=== PATIENT | female | born 1935 | race African-American/Black ===

== ENCOUNTER → 2017-03-11 | Outpatient (CLI) | payer MEDICARE, OTHER ==
[2017-03-11 10:42] LABS: BASO # 0.1 x10^3/uL (0.0-0.2); BASO % 1 % (0-3); EOS # 0.1 x10^3/uL (0.0-0.7); EOS % 1 % (0-3); HEMATOCRIT 35.8 % (36.0-47.0); HEMOGLOBIN 11.6 g/dL (12.0-15.5); LYMPH # 1.3 x10^3/uL (1.0-4.8); LYMPH % 13 % (24-48); MEAN CORPUSCULAR HEMOGLOBIN 30 pg (25-35); MEAN CORPUSCULAR HGB CONC 32 g/dL (31-37); MEAN CORPUSCULAR VOLUME 92 fL (79-100); MONO # 0.6 x10^3/uL (0.0-1.1); MONO % 5 % (0-9); NEUT # 8.4 x10^3uL (1.8-7.7); NEUT % 81 % (31-73); PLATELET COUNT 236 x10^3/uL (140-400); RED BLOOD COUNT 3.88 x10^6/uL (3.50-5.40); RED CELL DISTRIBUTION WIDTH 15.5 % (11.5-14.5); WHITE BLOOD COUNT 10.3 x10^3/uL (4.0-11.0)
[2017-03-11 10:52] LABS: ALBUMIN 3.5 g/dL (3.4-5.0); CALCIUM 8.9 mg/dL (8.5-10.1); CREATININE 1.5 mg/dL (0.6-1.0); GFR 40.4; PHOSPHORUS 3.5 mg/dL (2.6-4.7); POTASSIUM 4.2 mmol/L (3.5-5.1)
[2017-03-12 13:12] LABS: CALCIUM PTH 9.1 mg/dL (8.7-10.3); CREATININE PTH 1.42 mg/dL (0.57-1.00); PTH INTACT 97 pg/mL (15-65)
== END | disposition home or self-care (01) ==
LOC: LAB 10:17
PROVIDERS: ATTEND Internal Medicine Nephrology
DX: I12.9 Hypertensive chronic kidney disease with stage 1 through stage 4 chronic kidney disease, or unspecified chronic kidney disease (principal); N18.3 Chronic kidney disease, stage 3 (moderate); E11.21 Type 2 diabetes mellitus with diabetic nephropathy; Z68.29 Body mass index [BMI] 29.0-29.9, adult
CPT/HCPCS: 36415; 80069; 83970; 85027

== ENCOUNTER 2017-03-16 10:55 | Emergency (ER) | payer MEDICARE, OTHER ==
--- NOTE | 2017-03-16 11:58 | EKG ---
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
--- NOTE | 2017-03-16 12:07 | PHYS DOC ---
General Chief Complaint: MECHANICAL FALL Stated Complaint: FALL Time Seen by MD: 10:57 Source: patient, family, EMS Exam Limitations: clinical condition Problems: History of Present Illness Initial Comments Pt is 81/F to ED via EMS for fall injury. Pt states approx 8pm last night she "tripped" catching her right toes on a carpet edge. States she fell forward to the right trying to catch herself with her right arm, in the process injuring her right wrist/shoulder/chest as well as b/l great toes. States she remembers the entire event, denies head trauma/ neck pain/headache/LOC. States she was "too weak" to get back up. After not showing up for volunteer work this morning family went to check on her. Family reports pt found awake/alert sitting up on the floor in a puddle of urine. They assisted her to her feet, she was able to walk with "shuffled gait" using a walker and family assistance about 10 feet to the bathroom where family cleaned her up. PCP Dr Syed Uc Architect Dr Rios No Social Security Specialist Occurred: yesterday Severity: severe Injuries/Pain Location: upper extremity, chest, lower extremity Context: tripped Loss of Consciousness: no loss of consciousness Modifying Factors: worse with jarring, worse with movement, improves with rest Associated Symptoms: trouble walking, other Allergies: Coded Allergies: Sulfa (Sulfonamide Antibiotics) (Verified Allergy, Unknown, RASH, 03/16/17) glyburide (Verified Allergy, Unknown, 03/16/17) Past Medical History Medical History: other (DM2, HTN, Hyperlipidemia, AR, Gout, Diabetic neuropathy , osteoporosis, Renal Insufficiency) Surgical History: other (ORIF R Shoulder fracture 2010) Social History Smoker: less than 1 pack/day Alcohol: none Drugs: none Review of Systems Constitutional: denies chills, denies diaphoresis, denies fever, malaise Ears, Nose, Mouth, Throat: denies ear pain, denies ear discharge, denies nose discharge, denies epistaxis, denies mouth pain, denies throat pain Respiratory: denies cough, denies shortness of breath, denies wheezing Cardiovascular: denies chest pain, edema, denies palpitations, denies syncope Gastrointestinal: denies diarrhea, denies nausea, denies vomiting Genitourinary: denies dysuria, denies frequency, denies hematuria Musculoskeletal: see HPI Skin: see HPI Psychiatric/Neurological: see HPI, denies headache Physical Exam General Appearance: no apparent distress Head: no evidence of injury (NCAT, neg snowden sign neg raccoon eyes no scalp tenderness or palpable deformity) Eyes: bilateral eye normal inspection, bilateral eye EOMI Ears, Nose, Mouth, Throat: hearing grossly normal, no evidence of ENT injury ( no ear/nose discharge no fluid behind TMs b/l), no dental injury Neck: non-tender, full range of motion Cardiovascular/Respiratory: normal peripheral pulses, no respiratory distress ( coarse BS b/l with good air movement, TTP right lower anterior ribs no palpable deformity or paradoxical motion) Gastrointestinal: non tender, soft Back: no CVA tenderness, no vertebral tenderness Extremities: pelvis stable, other (R hallux with two 1cm pressure sores inferomedially no skin break with bruising and tenderness entire digit. 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 PHYSICIAN: KARINA ALVAREZ DO REASON: fall, R rib pain PROCEDURE: CT CHEST WO CONTRAST Right rib pain. Axial noncontrast images of the chest were obtained. No prior imaging of the chest is available. Imaging through the upper abdomen demonstrates some enlargement of the left adrenal gland. It measures approximately 1.6 cm. This is likely incidental representing either hyperplasia or an adenoma. No acute or definite significant finding in the upper abdomen is seen. A moderate-sized hiatus hernia is seen. There is moderately extensive coronary artery calcification. There is a probable adenoma in the left lobe of the thyroid. If clinically warranted this could be further evaluated with ultrasound. There is no significant hilar or mediastinal adenopathy. There is a 5 mm nodule at the left lung apex, image 11 series 2. A dominant soft tissue mass in either lung is not seen. There is some pleural-parenchymal scarring in the right lung laterally. There is no significant pleural fluid in either lung. There is no pneumothorax. There are fractures, either recent or acute, involving 3 right lower anterior ribs. IMPRESSION: Recent or acute fractures involving 3 right anterior lower ribs. Pleural parenchymal scarring in the right lower lobe ventrally and laterally. Probable left thyroid adenoma. 5 mm nodule left upper lobe. Probable hyperplasia or adenoma associated with the left adrenal gland. Nodules detected incidentally at non-screening CT Nodule size (mm) less than or equal to 4 Low Risk patients- no follow-up needed High Risk patients- follow-up at 12 months and if no change, no further imaging needed. Nodule size > 4-6 mm Low risk patients- follow- up at 12 months and if no change, no further imaging needed High risk patients- initial follow-up CT at 6-12 months and then at 18-24 months if no change. Nodule Size > 6-8 mm Low risk patients- initial follow-up CT at 6-12 months and then at 18-24 months if no change. High risk patients- initial follow- up CT at 3-6 months and then at 9-12 months if no change, Nodule Size >8 mm Either low or high risk patients: Follow-up CT at around 3, 9 and 24 [address] contrast [address], PET, and/or biopsy Note: newly detected indeterminate nodule in person 35 years of age or older. Low risk patients- minimal or absent history of smoking and/or other known risk factors. High risk patients- history of smoking or of other known risk factors. PQRS Compliance Statement: One or more of the following individualized dose reduction techniques were utilized for this examination: 1. Automated exposure control 2. Adjustment of the mA and/or kV according to patient size 3. Use of iterative reconstruction technique DICTATED AND SIGNED BY: MURRAY CHANDRA MD DATE: 03/16/17 1151 CC: AMBERLY SYED MD; KARINA ALVAREZ DO ~ PATIENT: ZIA RUELAS ACCOUNT: [id number] : 1935 LOCATION: ER AGE: 81 SEX: F EXAM [id number] STATUS: REG ER ORD. PHYSICIAN: KARINA ALVAREZ DO REASON: fall PROCEDURE: FOOT BILAT 3V; SHOULDER 2+V RIGHT Exam performed: X-ray bilateral feet and right shoulder. History: Fall with bilateral feet pain and right shoulder pain. Date of service: 03/16/17. Comparison: None available 3 views bilateral feet findings: Early degenerative changes about the first metatarsophalangeal joint with Mild hallux valgus deformity of the right great toe is seen. The remainder alignment appears preserved necessary at that some fluid within the abdomen and there is mild soft tissue swelling. There are moderate degenerative changes involving the first metatarsophalangeal joint with osteophytic spurring and periarticular sclerosis. The remainder alignment is preserved. There is diffuse soft tissue swelling. No foreign body. Impression: 1. 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 2. Early degenerative arthrosis involving the right first metatarsophalangeal joint with hallux deformity. 3. Soft tissue swelling bilateral feet. DICTATED AND SIGNED BY: ADARSH WEATHERS MD DATE: 03/16/17 1203 CC: AMBERLY SYED MD; KARINA ALVAREZ DO ~ PATIENT: ZIA RUELAS ACCOUNT: [id number] : 1935 LOCATION: ER AGE: 81 SEX: F EXAM STATUS: REG ER ORD. PHYSICIAN: KARINA ALVAREZ DO REASON: fall, PROCEDURE: CT HEAD WO CONTRAST Exam performed: CT scan of the head without contrast. Date of Service: 11/20/13. Comparison: None available. Clinical History: Dizziness and syncope. Technique: Helical acquisitions are obtained from the foramen magnum to the vertex without intravenous administration of contrast. Findings: Prominence of cortical sulci and ventricles system is noted consistent with age related atrophy. The ventricles are somewhat out of proportion dilated to the degree of sulcal prominence. There are areas of low-attenuation in both periventricular and subcortical deep white matter suggesting small vessel ischemic changes. Normal aguilera-white differentiation is maintained. There is no extra axial fluid collection, intraparenchymal hemorrhage or mass lesion. The visualized portions of the orbits, paranasal sinuses and the mastoid air cells appear clear. The calvarium is intact. Impression: 1. Age-related atrophy. The degree of ventricular dilatation appears out of proportion to the sulcal prominence. This raises question for normal pressure hydrocephalus. Correlate clinically. 2. No acute intracranial process detected. PQRS Compliance Statement: One or more of the following individualized dose reduction techniques were utilized for this examination: 1. Automated exposure control 2. Adjustment of the mA and/or kV according to patient size 3. Use of iterative reconstruction technique DICTATED AND SIGNED BY: ADARSH WEATHERS MD DATE: 03/16/17 1405 CC: AMBERLY SYED MD; KARINA ALVAREZ DO ~ WBC 15.6, BUN 47, Cr 1.8, glu 174, CK 4286, Trop I 3.488, BNP 15,051, UA pending Pt will need cardio, neuro, and possibly nephrology/HD. Will need to transfer to [facility]. 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 1309: Pt discussed with Eliezer, neon sign servicer for Cardiology. Requested CT head r/o bleed definitively, if no bleed initiate heparin anticoagulation protocol. Gentle hydration, admit to neon sign servicer hospitalist at [facility]. (CT head neg for bleed, questionable NPH which makes sense clinicially. Heparin bolus given prior to EMS transfer). 1326: Pt discussed with Dr Recinos, who accepts ICU admission for transfer to [facility]. 1409: Dr Wyman, Cardiology called to discussed pt and clarify details. After discussing pt he advises continue with plan of care. IMPRESSIONS: Mechanical Fall (Normal Pressure Hydrocephalus) Rhabdomyolysis (CK 4286) Elevated Trop I and BNP (3.488, 15,051) will r/o head bleed and heparinize per Cardio 3 Nondisplaced right anterior rib fractures Acute on Chronic Renal Insufficiency R Shoulder/wrist, L Hallux Sprains DM Pressure Ulcer R Hallux Pulmonary nodule/thyroid and adrenal hyperplasia Abrasions NS 500cc IV bolus, zosyn, heparin bolus IV in ED Departure Time of Disposition: 13:36 Disposition: 05 XFER OTHER Diagnosis: rhabdomyolysis, elevated troponin I and BNP, rib f Condition: STABLE Additional Instructions: EMS transfer to [facility] ICU Dr Recinos is accepting. KARINA ALVAREZ DO March 16, 2017 12:07
--- NOTE | 2017-03-16 12:10 | RAD ---
Exam performed: X-ray bilateral feet and right shoulder. History: Fall with bilateral feet pain and right shoulder pain. Date of service: 03/16/17. Comparison: None available 3 views bilateral feet findings: Early degenerative changes about the first metatarsophalangeal joint with Mild hallux valgus deformity of the right great toe is seen. The remainder alignment appears preserved necessary at that some fluid within the abdomen and there is mild soft tissue swelling. There are moderate degenerative changes involving the first metatarsophalangeal joint with osteophytic spurring and periarticular sclerosis. The remainder alignment is preserved. There is diffuse soft tissue swelling. No foreign body. Impression: 1. 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 2. Early degenerative arthrosis involving the right first metatarsophalangeal joint with hallux deformity. 3. Soft tissue swelling bilateral feet.
--- NOTE | 2017-03-16 12:14 | RAD ---
Exam performed: 2 views right wrist. History: Right wrist pain, status post fall. Date of service: 03/16/17. Comparison: None available Findings: AP and lateral view of the right wrist are obtained. There are early degenerative changes about the first carpometacarpal joint. There is no acute fracture or dislocation. Mild soft tissue swelling is seen. No foreign body. Impression: Mild soft tissue swelling without underlying bony abnormality.
[2017-03-16] MEDS ORDERED: MORPHINE SULFATE 2 MG/ML DISP.SYRIN. IV/SQ PRN (12:15)
[2017-03-16 12:40] LABS: BASO % 0 % (0-3); EOS % 0 % (0-3); HEMATOCRIT 37.2 % (36.0-47.0); HEMOGLOBIN 12.2 g/dL (12.0-15.5); LYMPH # 0.7 x10^3/uL (1.0-4.8); LYMPH % 4 % (24-48); MEAN CORPUSCULAR HEMOGLOBIN 29 pg (25-35); MEAN CORPUSCULAR HGB CONC 33 g/dL (31-37); MEAN CORPUSCULAR VOLUME 90 fL (79-100); MONO # 1.1 x10^3/uL (0.0-1.1); MONO % 7 % (0-9); NEUT # 13.8 x10^3uL (1.8-7.7); NEUT % 88 % (31-73); PLATELET COUNT 243 x10^3/uL (140-400); RED BLOOD COUNT 4.16 x10^6/uL (3.50-5.40); RED CELL DISTRIBUTION WIDTH 14.7 % (11.5-14.5); WHITE BLOOD COUNT 15.6 x10^3/uL (4.0-11.0)
[2017-03-16 12:49] LABS: ALBUMIN 3.2 g/dL (3.4-5.0); CALCIUM 9.5 mg/dL (8.5-10.1); CREATININE 1.8 mg/dL (0.6-1.0); DIRECT BILIRUBIN 0.3 mg/dL (0.0-0.2); GFR 32.8; POTASSIUM 4.4 mmol/L (3.5-5.1); TOTAL PROTEIN 7.9 g/dL (6.4-8.2)
[2017-03-16 13:00] VITALS: BP 139/56
--- NOTE | 2017-03-16 13:26 | EKG ---
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
[2017-03-16] MEDS ORDERED: IV NORMAL SALINE 1,000ML 500 ML IV SCH (13:31)
[2017-03-16 13:40] LABS: BILIRUBIN,URINE NEG (NEG); CLARITY,URINE HAZY; COLOR,URINE YELLOW; GLUCOSE,URINE NEG (NEG)
[2017-03-16 13:41] LABS: BACTERIA,URINE FEW /HPF (0-FEW); HYALINE CASTS, URINE FEW /HPF; NITRITE,URINE NEG (NEG); SQUAMOUS EPITHELIAL CELL,UR MANY /LPF; UROBILINOGEN,URINE 0.2 mg/dL (0.2 mg/dL)
[2017-03-16 13:45] LABS: % BANDS 3 % (0-9); % LYMPHS 4 % (24-48); % MONOS 6 % (0-10); % SEGS 87 % (35-66); PLT ESTIMATE ADEQUATE (ADEQUATE)
[2017-03-16] MEDS ORDERED: PIP/TAZO PER PHARMACY MC PRN (13:45)
[2017-03-16 13:46] LABS: PLATELET CLUMP PRESENT; SCHISTOCYTES OCC; TEAR DROP CELLS OCC; TOXIC GRANULATION SLIGHT
--- NOTE | 2017-03-16 14:12 | RAD ---
Exam performed: CT scan of the head without contrast. Date of Service: 11/20/13. Comparison: None available. Clinical History: Dizziness and syncope. Technique: Helical acquisitions are obtained from the foramen magnum to the vertex without intravenous administration of contrast. Findings: Prominence of cortical sulci and ventricles system is noted consistent with age related atrophy. The ventricles are somewhat out of proportion dilated to the degree of sulcal prominence. There are areas of low-attenuation in both periventricular and subcortical deep white matter suggesting small vessel ischemic changes. Normal aguilera-white differentiation is maintained. There is no extra axial fluid collection, intraparenchymal hemorrhage or mass lesion. The visualized portions of the orbits, paranasal sinuses and the mastoid air cells appear clear. The calvarium is intact. Impression: 1. Age-related atrophy. The degree of ventricular dilatation appears out of proportion to the sulcal prominence. This raises question for normal pressure hydrocephalus. Correlate clinically. 2. No acute intracranial process detected. PQRS Compliance Statement: One or more of the following individualized dose reduction techniques were utilized for this examination: 1. Automated exposure control 2. Adjustment of the mA and/or kV according to patient size 3. Use of iterative reconstruction technique
[2017-03-16] MEDS ORDERED: IV NORMAL SALINE 50ML 50 ML ONE (14:14)
[2017-03-16] MEDS ORDERED: PIPERACILLIN/TAZOBACTAM 3.375 GM VIAL IV ONE (14:14)
[2017-03-16] MEDS ORDERED: PIPERACILLIN/TAZOBACTAM 3.375 GM in IV NORMAL SALINE 50ML 50 ML IV ONE (14:15)
[2017-03-16] MEDS ORDERED: HEPARIN for IV BOLUS 10,000 UNIT/10 ML VIAL. IV ONE (14:30)
== END 2017-03-16 14:45 | disposition short-term general hospital (02) ==
LOC: ER 10:55
DX: S22.31XA Fracture of one rib, right side, initial encounter for closed fracture (principal); M62.82 Rhabdomyolysis; R79.89 Other specified abnormal findings of blood chemistry; S43.401A Unspecified sprain of right shoulder joint, initial encounter; S93.602A Unspecified sprain of left foot, initial encounter; E11.40 Type 2 diabetes mellitus with diabetic neuropathy, unspecified; E11.621 Type 2 diabetes mellitus with foot ulcer; E11.29 Type 2 diabetes mellitus with other diabetic kidney complication; I10 Essential (primary) hypertension; E78.5 Hyperlipidemia, unspecified; M81.0 Age-related osteoporosis without current pathological fracture; F17.200 Nicotine dependence, unspecified, uncomplicated; Z88.2 Allergy status to sulfonamides; Z88.8 Allergy status to other drugs, medicaments and biological substances; W01.0XXA Fall on same level from slipping, tripping and stumbling without subsequent striking against object, initial encounter; Y93.89 Activity, other specified; Y99.8 Other external cause status; Y92.89 Other specified places as the place of occurrence of the external cause
CPT/HCPCS: 36415; 70450; 71250; 73030; 73100; 73630; 80048; 80076; 81001; 82550; 83880; 84484; 85007; 85027; 85610; 85730; 87086; 93005; 96361; 96365; 96375; 99285; J1644; J2270; J2543; J7030

== ENCOUNTER → 2017-08-13 | Outpatient (CLI) | payer MEDICARE, OTHER ==
[2017-08-13 16:32] LABS: ALBUMIN 3.6 g/dL (3.4-5.0); CALCIUM 8.7 mg/dL (8.5-10.1); CREATININE 1.8 mg/dL (0.6-1.0); GFR 32.7; PHOSPHORUS 4.1 mg/dL (2.6-4.7); POTASSIUM 4.4 mmol/L (3.5-5.1)
== END | disposition home or self-care (01) ==
LOC: LAB 15:43
PROVIDERS: ATTEND Internal Medicine Nephrology
DX: I12.9 Hypertensive chronic kidney disease with stage 1 through stage 4 chronic kidney disease, or unspecified chronic kidney disease (principal); N18.3 Chronic kidney disease, stage 3 (moderate); E11.22 Type 2 diabetes mellitus with diabetic chronic kidney disease; E11.21 Type 2 diabetes mellitus with diabetic nephropathy; E87.5 Hyperkalemia; Z68.29 Body mass index [BMI] 29.0-29.9, adult
CPT/HCPCS: 36415; 80069

== ENCOUNTER 2017-10-30 17:08 | Inpatient (IN) | payer MEDICARE, OTHER ==
[~2017-10-30] VITALS: Ht 165.1 cm; Wt 71.3 kg
[2017-10-30 17:38] VITALS: BP 100/69
[2017-10-30 17:50] VITALS: BP 123/65
[2017-10-30] MEDS ORDERED: IV NORMAL SALINE 1,000ML 1,000 ML IV SCH (18:10)
[2017-10-30] MEDS ORDERED: ACETAMINOPHEN 325 MG TABLET PO PRN (18:15)
[2017-10-30] MEDS ORDERED: ONDANSETRON PF 4 MG/2 ML VIAL. IV PRN (18:15)
--- NOTE | 2017-10-30 18:17 | EKG ---
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
[2017-10-30 18:36] LABS: ALBUMIN/GLOBULIN RATIO 0.9 (1.0-1.7); CALCIUM 8.6 mg/dL (8.5-10.1); CREATININE 1.9 mg/dL (0.6-1.0); GFR 30.7; MAGNESIUM 1.9 mg/dL (1.8-2.4); POTASSIUM 4.1 mmol/L (3.5-5.1); TOTAL BILIRUBIN 0.3 mg/dL (0.2-1.0); TOTAL PROTEIN 6.3 g/dL (6.4-8.2)
[2017-10-30] MEDS ORDERED: ASPI-630 PO (19:36)
[2017-10-30] MEDS ORDERED: GABA-586 PO (19:36)
[2017-10-30] MEDS ORDERED: FURO-69 PO (19:36)
[2017-10-30] MEDS ORDERED: ATOR20TA58 PO (19:36)
[2017-10-30] MEDS ORDERED: OMEP20CA9 PO (19:36)
[2017-10-30] MEDS ORDERED: LOSA100T6 PO (19:36)
[2017-10-30] MEDS ORDERED: AMLO5TAB2 PO (19:36)
[2017-10-30 20:13] VITALS: BP 140/85
--- NOTE | 2017-10-30 21:17 | RAD ---
AP portable chest x-ray HISTORY: Chest pain FINDINGS: Borderline cardiomegaly may be magnified by the AP portable technique. Calcified plaque aortic arch. Rounded lower mediastinal retrocardiac density could be a hiatal hernia although a mass is not excluded. No pneumothorax. Right lung clear. There may be a tiny left pleural effusion at the lateral diaphragm. Heterogeneous density left lower lobe could be atelectasis/infiltrate. Right humerus hardware. Old healed left rib fractures. IMPRESSION: Small left pleural effusion along the diaphragm and left lower lobe atelectasis/infiltrate. See discussion above. Electronically signed by: Sharad Patino MD (10/30/2017 9:14 PM) [facility]
[2017-10-30 21:21] LABS: BASO # 0.1 x10^3/uL (0.0-0.2); BASO % 1 % (0-3); EOS % 0 % (0-3); LYMPH % 24 % (24-48); MEAN CORPUSCULAR HEMOGLOBIN 20 pg (25-35); MEAN CORPUSCULAR HGB CONC 30 g/dL (31-37); MEAN CORPUSCULAR VOLUME 66 fL (79-100); MONO # 0.8 x10^3/uL (0.0-1.1); MONO % 7 % (0-9); NEUT # 8.5 x10^3uL (1.8-7.7); NEUT % 68 % (31-73); PLATELET COUNT 334 x10^3/uL (140-400); RED BLOOD COUNT 1.61 x10^6/uL (3.50-5.40); RED CELL DISTRIBUTION WIDTH 20.5 % (11.5-14.5); WHITE BLOOD COUNT 12.4 x10^3/uL (4.0-11.0)
[2017-10-30 21:27] LABS: HEMATOCRIT 10.6 % (36.0-47.0); HEMOGLOBIN 3.2 g/dL (12.0-15.5)
[2017-10-30 21:50] VITALS: BP 117/52
[2017-10-30 22:24] VITALS: BP 108/45
[2017-10-30 23:25] VITALS: BP 114/70
[2017-10-30 23:50] LABS: INFLUENZA A PATIENT NEGATIVE (NEGATIVE); INFLUENZA B PATIENT NEGATIVE (NEGATIVE)
[2017-10-31] VITALS (32 sets, daily range): BP systolic 108–168; BP diastolic 46–74
[2017-10-31 00:05] LABS: CLARITY,URINE CLEAR; COLOR,URINE YELLOW
[2017-10-31 00:06] LABS: BILIRUBIN,URINE NEG (NEG); GLUCOSE,URINE NEG (NEG); NITRITE,URINE NEG (NEG); UROBILINOGEN,URINE 0.2 mg/dL (0.2 mg/dL)
[2017-10-31 00:07] LABS: BACTERIA,URINE 0 /HPF (0-FEW); RBC,URINE 0 /HPF (0-2); SQUAMOUS EPITHELIAL CELL,UR FEW /LPF; WBC,URINE OCC /HPF (0-4)
[2017-10-31 00:13] LABS: ANISOCYTOSIS MOD; HYPOCHROMIA MARKED; MICROCYTOSIS MARKED; PLT ESTIMATE ADEQUATE (ADEQUATE)
[2017-10-31] MEDS: SUCRALFATE 1 GM TABLET. PO SCH ×5 (02:16→20:40)
[2017-10-31] MEDS ORDERED: PANTOPRAZOLE IV PUSH 40 MG VIAL. IVP ONE (02:26)
[2017-10-31] MEDS ORDERED: IV NORMAL SALINE 100ML 100 ML ONE (02:41)
[2017-10-31] MEDS: PANTOPRAZOLE SODIUM IV DRIP 80 MG in IV NORMAL SALINE 100ML 100 ML IV SCH ×2 (03:07→10:30)
[2017-10-31 07:53] LABS: BASO # 0.1 x10^3/uL (0.0-0.2); BASO % 1 % (0-3); EOS # 0.1 x10^3/uL (0.0-0.7); EOS % 1 % (0-3); LYMPH # 2.6 x10^3/uL (1.0-4.8); LYMPH % 26 % (24-48); MEAN CORPUSCULAR HEMOGLOBIN 24 pg (25-35); MEAN CORPUSCULAR HGB CONC 33 g/dL (31-37); MEAN CORPUSCULAR VOLUME 74 fL (79-100); MONO # 0.7 x10^3/uL (0.0-1.1); MONO % 7 % (0-9); NEUT # 6.4 x10^3uL (1.8-7.7); NEUT % 65 % (31-73); PLATELET COUNT 294 x10^3/uL (140-400); RED BLOOD COUNT 2.47 x10^6/uL (3.50-5.40); RED CELL DISTRIBUTION WIDTH 23.8 % (11.5-14.5); WHITE BLOOD COUNT 9.8 x10^3/uL (4.0-11.0)
[2017-10-31 07:56] LABS: HEMATOCRIT 18.3 % (36.0-47.0)
[2017-10-31 08:05] LABS: ALBUMIN 2.6 g/dL (3.4-5.0); ALBUMIN/GLOBULIN RATIO 0.9 (1.0-1.7); CALCIUM 8.2 mg/dL (8.5-10.1); CREATININE 1.5 mg/dL (0.6-1.0); GFR 40.3; MAGNESIUM 1.9 mg/dL (1.8-2.4); POTASSIUM 4.3 mmol/L (3.5-5.1); TOTAL BILIRUBIN 0.5 mg/dL (0.2-1.0); TOTAL PROTEIN 5.6 g/dL (6.4-8.2)
[2017-10-31] MEDS: LACTOBACILLUS RHAMNOSUS GG 1 CAPSULE. PO SCH ×2 (08:36→20:40)
[2017-10-31] MEDS ORDERED: PNEUMOC CONJ VACC 23-VALENT 0.5 ML VIAL. VAX IM ONE (09:00)
[2017-10-31] MEDS: PANTOPRAZOLE IV PUSH 40 MG VIAL. IVP SCH ×2 (11:45→20:40)
[2017-10-31 14:44] LABS: HEMATOCRIT 25.8 % (36.0-47.0); HEMOGLOBIN 8.5 g/dL (12.0-15.5)
--- NOTE | 2017-10-31 15:40 | CARD ---
MR#: [id number] Date of Study: 10/31/2017 Ordering Physician: AMBERLY SYED, Referring Physician: AMBERLY SYED, Tech: [facility] APPROVED REPORT EXAM: Two-dimensional and M-mode echocardiogram with Doppler and color Doppler. Other Information Quality : FairHR: 82bpm Technically limited study due to body habitus. INDICATION Dyspnea RISK FACTORS Hypertension 2D DIMENSIONS IVSd0.9 (0.7-1.1cm)LVDd5.3 (3.9-5.9cm) LVOT Diameter1.9 (1.8-2.4cm)PWd1.1 (0.7-1.1cm) LVDs4.4 (2.5-4.0cm)FS (%) 16.5 % SV46.0 mlLVEF(%)55.0 (>50%) Aortic Valve AoV Peak [place].168.1cm/sAoV VTI37.5cm AO Peak GR.11.3mmHgLVOT Peak [place].116.7cm/s LVOT VTI 26.94cmAO Mean GR.6mmHg REGINALD (VMAX)1.09hn1DOZ (VTI)1.96cm2 Mitral Valve MV E Icbdlfkw424.7cm/sMV DECEL DCCE207cl MV A Wqicqerc928.6cm/sE/A Ratio1.1 Pulmonary Valve PV Peak Fhwtqema223.0cm/sPV Peak Grad.6mmHg Tricuspid Valve TR P. Emywngaj092xb/sRAP VOGSQJZE55daKw TR Peak Gr.93jrGyKNPL53brDv Pulmonary Vein S1 Fpnntseg73.6cm/sD2 Andnenbd34.0cm/s LEFT VENTRICLE The left ventricle is normal size. There is normal left ventricular wall thickness. Left ventricle sy stolic function is normal. The Ejection Fraction is 55-60%. There is normal LV segmental wall motion. The left ventricular diastolic function and filling is normal for age. RIGHT VENTRICLE The right ventricle is normal size. The right ventricular systolic function is normal. ATRIA The left atrium size is normal. The right atrium size is normal. The interatrial septum is intact wit h no evidence for an atrial septal defect or patent foramen ovale as noted on 2-D or Doppler imaging. AORTIC VALVE The aortic valve is calcified but opens well. The aortic valve is mildly sclerotic. Doppler and Color Flow revealed no significant aortic regurgitation. There is trace valvular aortic stenosis. There is no aortic valvular vegetation. MITRAL VALVE Mitral annular calcification is moderate to severe. The mitral valve is moderately thickened but open s well. There is no evidence of mitral valve prolapse. There is no mitral valve stenosis. Doppler and Color Flow revealed no mitral valve regurgitation noted. TRICUSPID VALVE The tricuspid valve leaflets are thickened or calcified, but open well. Doppler and Color Flow reveal ed mild tricuspid regurgitation. There is moderate pulmonary hypertension. The PA pressure was estima pernell at 48 mmHg. There is no tricuspid valve prolapse or vegetation. There is no tricuspid valve steno sis. PULMONIC VALVE The pulmonary valve is normal in structure and function. Doppler and Color Flow revealed no pulmonic valvular regurgitation. There is no pulmonic valvular stenosis. GREAT VESSELS The aortic root is normal in size. The IVC is large in size and collapses <50% with inspiration. PERICARDIAL EFFUSION There is no pleural effusion. There is no evidence of significant pericardial effusion. Critical Notification Critical Value: No <Conclusion> The left ventricle is normal size. Left ventricle systolic function is normal. The Ejection Fraction is 55-60%. There is trace valvular aortic stenosis. Doppler and Color Flow revealed no significant aortic regurgitation. Doppler and Color Flow revealed no mitral valve regurgitation noted. Doppler and Color Flow revealed mild tricuspid regurgitation. There is moderate pulmonary hypertension. The PA pressure was estimated at 48 mmHg. Signed by : Jeyson Oneal MD Electronically Approved : 10/31/2017 15:39:19
--- NOTE | 2017-10-31 17:06 | CONS ---
DATE OF CONSULTATION: 10/31/2017 REASON FOR CONSULTATION: Chest pain. HISTORY OF PRESENT ILLNESS: The patient is a pleasant 82-year-old woman who presented to the hospital in the setting of fatigue, and noted to have a significant anemia with hemoglobin of 3.5 and she has been resuscitated overnight with several units of blood. In this setting, she has had some emesis and has noted to have some epigastric discomfort for which Cardiology was asked to evaluate her. In the past, she was admitted to [facility] with rhabdomyolysis and had an elevated troponin of 3.9, at which point, she was seen by Cardiology, and had a normal stress test and discharged without a cardiac catheterization in light of her renal failure. Since then, she has been doing fairly okay, has returned to her house, and was getting around fairly well up until the last few weeks where she reported that she has had some black and tarry stools as well as emesis suggestive of coffee-ground emesis. At this present time, she denies any chest pain, orthopnea, PND or lower extremity edema, but she does have some fatigue. PAST MEDICAL HISTORY: 1. Hypertension. 2. Dyslipidemia. SOCIAL HISTORY: Unremarkable. FAMILY HISTORY: Noncontributory. REVIEW OF SYSTEMS: Negative for 10 out of 14 systems reviewed, unless otherwise as mentioned above in HPI. ALLERGIES: SULFA and GLYBURIDE. PHYSICAL EXAMINATION: VITAL SIGNS: Afebrile, 86, 18, 133/64, 97% on room air. GENERAL: She is alert and oriented, in no acute distress. HEAD AND NECK: Unremarkable. Her sclerae are mildly icteric. CARDIAC: Heart sounds are normal. LUNGS: Clear. ABDOMEN: Soft with a mild tenderness to palpation diffusely. EXTREMITIES: No clubbing, cyanosis or edema with 2+ radial and dorsalis pedis pulses. NEUROLOGIC: No focal deficits. MUSCULOSKELETAL: No trauma. LABORATORY DATA: Her chest x-ray is notable for a small left pleural effusion, but otherwise no significant pathology. Her echocardiogram demonstrated normal LV systolic function. Her hemoglobin was increased to 8.6 after several units of blood. IMPRESSION: 1. Anemia, likely gastrointestinal bleeding, chronic . 2. Prior troponin elevation in the setting of rhabdomyolysis. 3. Minimal hypertension, well controlled. 4. Chest pain, noncardiac likely related to gastroesophageal reflux disease or peptic ulcer disease. RECOMMENDATIONS: She has a normal echocardiogram and unremarkable EKG and recent stress tests, which have all been negative. Continue supportive care with treatment of primary issue, namely her gastrointestinal bleeding. Thank you for this consultation. BRANDON ANTOINE MD DR: DARRIUS/anabell JOB#: [id number] / [id number]
[2017-10-31] MEDS ORDERED: ONDANSETRON PF 4 MG/2 ML VIAL. IV PRN (18:15)
[2017-10-31] MEDS ORDERED: ACETAMINOPHEN 325 MG TABLET PO PRN (18:15)
[2017-10-31] MEDS: cefTRIAXone IV Push 1 GM VIAL. IVP SCH (20:42)
[2017-11-01 03:59] VITALS: BP 151/66
[2017-11-01 05:42] VITALS: BP 179/86
[2017-11-01 06:15] LABS: BASO # 0.1 x10^3/uL (0.0-0.2); BASO % 0 % (0-3); EOS # 0.2 x10^3/uL (0.0-0.7); EOS % 2 % (0-3); HEMATOCRIT 27.6 % (36.0-47.0); LYMPH # 2.5 x10^3/uL (1.0-4.8); LYMPH % 21 % (24-48); MEAN CORPUSCULAR HEMOGLOBIN 25 pg (25-35); MEAN CORPUSCULAR HGB CONC 33 g/dL (31-37); MEAN CORPUSCULAR VOLUME 77 fL (79-100); MONO # 0.8 x10^3/uL (0.0-1.1); MONO % 7 % (0-9); NEUT % 69 % (31-73); PLATELET COUNT 284 x10^3/uL (140-400); RED CELL DISTRIBUTION WIDTH 21.4 % (11.5-14.5); WHITE BLOOD COUNT 11.6 x10^3/uL (4.0-11.0)
[2017-11-01 06:19] LABS: CALCIUM 8.5 mg/dL (8.5-10.1); CREATININE 1.3 mg/dL (0.6-1.0); GFR 47.6; POTASSIUM 3.8 mmol/L (3.5-5.1)
[2017-11-01] MEDS: SUCRALFATE 1 GM TABLET. PO SCH ×4 (08:04→21:41)
[2017-11-01] MEDS: LACTOBACILLUS RHAMNOSUS GG 1 CAPSULE. PO SCH ×2 (08:04→21:41)
[2017-11-01] MEDS: PANTOPRAZOLE IV PUSH 40 MG VIAL. IVP SCH ×2 (08:07→21:42)
[2017-11-01 08:53] LABS: % EOS 1 % (0-5); % LYMPHS 19 % (24-48); % MONOS 3 % (0-10); % SEGS 77 % (35-66); ANISOCYTOSIS MOD; HYPOCHROMIA SLIGHT; NUCLEATED RBC 1; PLT ESTIMATE ADEQUATE (ADEQUATE); POIKILOCYTOSIS SLIGHT; POLYCHROMASIA MOD
[2017-11-01 08:54] LABS: MICROCYTOSIS MOD; OVALOCYTES OCC; TEAR DROP CELLS OCC
[2017-11-01 08:56] LABS: TOXIC GRANULATION SLIGHT
[2017-11-01] MEDS ORDERED: PNEUMOC CONJ VACC 23-VALENT 0.5 ML VIAL. VAX IM ONE (09:00)
[2017-11-01] MEDS ORDERED: SENNOSIDES/DOCUSATE 8.6/50MG TABLET. PO PRN (09:45)
[2017-11-01] MEDS ORDERED: MAGNESIUM HYDROXIDE 2,400 MG/30 ML ORAL.SUSP. PO PRN (09:45)
[2017-11-01 09:54] VITALS: BP 161/85
--- NOTE | 2017-11-01 10:24 | PDOC ---
PROGRESS NOTES Assessment 1. Anemia, likely gastrointestinal bleeding, chronic - Hgb improved s/p 4 units PRBC 2. hypertension - all blood pressure meds held since admission. Pressures now moderately elevated. Will very slowly resume antihypertensives. 4. Chest pain, noncardiac . Normal MPI recently at [facility]. Problems: Subjective feeling much better, no dyspnea, no chest pain, no palpitations Objective Vital Signs Date Time Temp Pulse Resp B/P (MAP) Pulse Ox O2 Delivery O2 Flow Rate FiO2 11/01/17 09:54 71 20 161/85 (110) 97 Room Air 11/01/17 05:42 99.0 Intake and Output 11/01/17 07:00 Intake Total 900 ml Output Total 1900 ml Balance -1000 ml Intake Oral 800 ml IV Total 100 ml Output Urine Total 1900 ml # Voids 1 Abdomen: Normal bowel sounds, Soft Heart: Regular rate, Normal S1, Normal S2 Extremities: No cyanosis, No edema, Normal pulses General: Alert, Oriented X3, Cooperative, No acute distress Lungs: Clear to auscultation, Normal air movement Neuro: Normal speech Psych/Mental Status: Mental status NL, Mood NL Review of Relevant I have reviewed the following items daja (where applicable) has been applied. Labs Laboratory Tests Test 10/30/17 17:35 10/30/17 18:05 10/30/17 18:06 10/30/17 19:10 Glucose (Fingerstick) 145 mg/dL (70-99) Creatine Kinase 80 U/L (26-192) Troponin I Quantitative 0.041 ng/mL (0-0.055) White Blood Count 12.4 x10^3/uL (4.0-11.0) Red Blood Count 1.61 x10^6/uL (3.50-5.40) Hemoglobin 3.2 g/dL (12.0-15.5) Hematocrit 10.6 % (36.0-47.0) Mean Corpuscular Volume 66 fL (79-100) Mean Corpuscular Hemoglobin 20 pg (25-35) Mean Corpuscular Hemoglobin Concent 30 g/dL (31-37) Red Cell Distribution Width 20.5 % (11.5-14.5) Platelet Count 334 x10^3/uL (140-400) Neutrophils (%) (Auto) 68 % (31-73) Lymphocytes (%) (Auto) 24 % (24-48) Monocytes (%) (Auto) 7 % (0-9) Eosinophils (%) (Auto) 0 % (0-3) Basophils (%) (Auto) 1 % (0-3) Neutrophils # (Auto) 8.5 x10^3uL (1.8-7.7) Lymphocytes # (Auto) 3.0 x10^3/uL (1.0-4.8) Monocytes # (Auto) 0.8 x10^3/uL (0.0-1.1) Eosinophils # (Auto) 0.0 x10^3/uL (0.0-0.7) Basophils # (Auto) 0.1 x10^3/uL (0.0-0.2) Platelet Estimate Adequate (ADEQUATE) Hypochromasia Marked Anisocytosis Mod Microcytosis Marked D-Dimer (Violet) 2.94 mg/L (0.00-0.50) Sodium Level 137 mmol/L (136-145) Potassium Level 4.1 mmol/L (3.5-5.1) Chloride Level 103 mmol/L (98-107) Carbon Dioxide Level 21 mmol/L (21-32) Anion Gap 13 (6-14) Blood Urea Nitrogen 48 mg/dL (7-20) Creatinine 1.9 mg/dL (0.6-1.0) Estimated GFR (Cockcroft-Gault) 30.7 BUN/Creatinine Ratio 25 (6-20) Glucose Level 144 mg/dL (70-99) Calcium Level 8.6 mg/dL (8.5-10.1) Magnesium Level 1.9 mg/dL (1.8-2.4) Total Bilirubin 0.3 mg/dL (0.2-1.0) Aspartate Amino Transf (AST/SGOT) 14 U/L (15-37) Alanine Aminotransferase (ALT/SGPT) 12 U/L (14-59) Alkaline Phosphatase 71 U/L (46-116) TV-For-T-Type Natriuretic Peptide 1087 pg/mL (0-449) Total Protein 6.3 g/dL (6.4-8.2) Albumin 3.0 g/dL (3.4-5.0) Albumin/Globulin Ratio 0.9 (1.0-1.7) Thyroid Stimulating Hormone (TSH) 0.778 uIU/mL (0.358-3.740) Urine Collection Type Unknown Urine Color Yellow Urine Clarity Clear Urine pH 6.0 Urine Specific [place] <=1.005 Urine Protein Neg (NEG-TRACE) Urine Glucose (UA) Neg mg/dL (NEG) Urine Ketones (Stick) Neg mg/dL (NEG) Urine Blood Neg (NEG) Urine Nitrite Neg (NEG) Urine Bilirubin Neg (NEG) Urine Urobilinogen Dipstick 0.2 mg/dL (0.2 mg/dL) Urine Leukocyte Esterase Neg (NEG) Urine RBC 0 /HPF (0-2) Urine WBC Occ /HPF (0-4) Urine Squamous Epithelial Cells Few /LPF Urine Bacteria 0 /HPF (0-FEW) Test 10/30/17 20:50 10/30/17 23:15 10/31/17 07:40 10/31/17 14:35 Nasal Screen MRSA (PCR) Negative (Negative) Influenza Type A (Rapid) Negative (NEGATIVE) Influenza Type B (Rapid) Negative (NEGATIVE) White Blood Count 9.8 x10^3/uL (4.0-11.0) Red Blood Count 2.47 x10^6/uL (3.50-5.40) Hemoglobin 6.0 g/dL (12.0-15.5) 8.5 g/dL (12.0-15.5) Hematocrit 18.3 % (36.0-47.0) 25.8 % (36.0-47.0) Mean Corpuscular Volume 74 fL (79-100) Mean Corpuscular Hemoglobin 24 pg (25-35) Mean Corpuscular Hemoglobin Concent 33 g/dL (31-37) Red Cell Distribution Width 23.8 % (11.5-14.5) Platelet Count 294 x10^3/uL (140-400) Neutrophils (%) (Auto) 65 % (31-73) Lymphocytes (%) (Auto) 26 % (24-48) Monocytes (%) (Auto) 7 % (0-9) Eosinophils (%) (Auto) 1 % (0-3) Basophils (%) (Auto) 1 % (0-3) Neutrophils # (Auto) 6.4 x10^3uL (1.8-7.7) Lymphocytes # (Auto) 2.6 x10^3/uL (1.0-4.8) Monocytes # (Auto) 0.7 x10^3/uL (0.0-1.1) Eosinophils # (Auto) 0.1 x10^3/uL (0.0-0.7) Basophils # (Auto) 0.1 x10^3/uL (0.0-0.2) Sodium Level 142 mmol/L (136-145) Potassium Level 4.3 mmol/L (3.5-5.1) Chloride Level 110 mmol/L (98-107) Carbon Dioxide Level 24 mmol/L (21-32) Anion Gap 8 (6-14) Blood Urea Nitrogen 37 mg/dL (7-20) Creatinine 1.5 mg/dL (0.6-1.0) Estimated GFR (Cockcroft-Gault) 40.3 BUN/Creatinine Ratio 25 (6-20) Glucose Level 118 mg/dL (70-99) Calcium Level 8.2 mg/dL (8.5-10.1) Magnesium Level 1.9 mg/dL (1.8-2.4) Iron Level 17 ug/dL (50-170) Total Iron Binding Capacity 363 ug/dL (250-450) Iron Saturation 5 % (15-34) Total Bilirubin 0.5 mg/dL (0.2-1.0) Aspartate Amino Transf (AST/SGOT) 12 U/L (15-37) Alanine Aminotransferase (ALT/SGPT) 11 U/L (14-59) Alkaline Phosphatase 63 U/L (46-116) Creatine Kinase 75 U/L (26-192) Troponin I Quantitative 0.035 ng/mL (0-0.055) Total Protein 5.6 g/dL (6.4-8.2) Albumin 2.6 g/dL (3.4-5.0) Albumin/Globulin Ratio 0.9 (1.0-1.7) Vitamin B12 Level 307 pg/mL (247-911) Lactic Acid Level 1.5 mmol/L (0.4-2.0) Test 11/01/17 05:34 White Blood Count 11.6 x10^3/uL (4.0-11.0) Red Blood Count 3.60 x10^6/uL (3.50-5.40) Hemoglobin 9.0 g/dL (12.0-15.5) Hematocrit 27.6 % (36.0-47.0) Mean Corpuscular Volume 77 fL (79-100) Mean Corpuscular Hemoglobin 25 pg (25-35) Mean Corpuscular Hemoglobin Concent 33 g/dL (31-37) Red Cell Distribution Width 21.4 % (11.5-14.5) Platelet Count 284 x10^3/uL (140-400) Neutrophils (%) (Auto) 69 % (31-73) Lymphocytes (%) (Auto) 21 % (24-48) Monocytes (%) (Auto) 7 % (0-9) Eosinophils (%) (Auto) 2 % (0-3) Basophils (%) (Auto) 0 % (0-3) Neutrophils # (Auto) 8.0 x10^3uL (1.8-7.7) Lymphocytes # (Auto) 2.5 x10^3/uL (1.0-4.8) Monocytes # (Auto) 0.8 x10^3/uL (0.0-1.1) Eosinophils # (Auto) 0.2 x10^3/uL (0.0-0.7) Basophils # (Auto) 0.1 x10^3/uL (0.0-0.2) Segmented Neutrophils % 77 % (35-66) Lymphocytes % 19 % (24-48) Monocytes % 3 % (0-10) Eosinophils % 1 % (0-5) Nucleated Red Blood Cells 1 Toxic Granulation Slight Platelet Estimate Adequate (ADEQUATE) Large Platelets Occ Giant Platelets Occ Polychromasia Mod Hypochromasia Slight Poikilocytosis Slight Anisocytosis Mod Microcytosis Mod Tear Drop Cells Occ Ovalocytes Occ Sodium Level 145 mmol/L (136-145) Potassium Level 3.8 mmol/L (3.5-5.1) Chloride Level 113 mmol/L (98-107) Carbon Dioxide Level 25 mmol/L (21-32) Anion Gap 7 (6-14) Blood Urea Nitrogen 20 mg/dL (7-20) Creatinine 1.3 mg/dL (0.6-1.0) Estimated GFR (Cockcroft-Gault) 47.6 Glucose Level 105 mg/dL (70-99) Calcium Level 8.5 mg/dL (8.5-10.1) Microbiology 10/30/17 Blood Culture - Preliminary, Resulted NO GROWTH AFTER 1 DAY Medications Current Medications Sodium Chloride 1,000 ml @ 100 mls/hr Q10H IV ; Start 10/30/17 at 18:10; Stop 10/30/17 at 18:24; Status DC Acetaminophen (Tylenol) 650 mg PRN Q6HRS PRN PO Headaches, Temp > 101.5F; Start 10/30/17 at 18:15; Stop 10/30/17 at 23:08; Status DC Ondansetron HCl (Zofran) 4 mg PRN Q8HRS PRN IV NAUSEA/VOMITING; Start at 18:15; Stop 10/30/17 at 23:08; Status DC Pneumococcal Polyvalent Vaccine (Pneumovax 23) 0.5 ml ONCE ONCE VAX IM ; Start 10/31/17 at 09:00; Stop 10/31/17 at 09:00; Status DC Acetaminophen (Tylenol) 650 mg PRN Q6HRS PRN PO Headaches, Temp > 101.5F; Start 10/31/17 at 18:15 Ondansetron HCl (Zofran) 4 mg PRN Q8HRS PRN IV NAUSEA/VOMITING; Start at 18:15 Sucralfate (Carafate) 1 gm QIDACHS PO Last administered on 11/01/17 08:04; Start 10/31/17 at 00:30 Pantoprazole Sodium 80 mg/ Sodium Chloride 100 ml @ 10 mls/hr Q10H IV Last administered on 10/31/17 03:07; Start 10/31/17 at 00:30; Stop 10/31/17 at 11 :33; Status DC Ceftriaxone Sodium 1 gm/ Sodium Chloride 50 ml @ 100 mls/hr QHS IV Last administered on 10/31/17 02:07; Start 10/31/17 at 00:30; Stop 10/31/17 at 07 :00; Status DC Levofloxacin/ Dextrose 100 ml @ 100 mls/hr 1X ONCE IV Last administered on 02:16; Start 10/31/17 at 01:00; Stop 10/31/17 at 01:59; Status DC Lactobacillus Rhamnosus (Culturelle) 1 cap BID PO Last administered on 08:04; Start 10/31/17 at 09:00 Levofloxacin/ Dextrose 100 ml @ 100 mls/hr Q48H IV ; Start 11/02/17 at 06:00 Pantoprazole Sodium (PROTONIX VIAL for IV PUSH) 40 mg STK-MED ONCE IVP ; Start 10/31/17 at 02:26; Stop 10/31/17 at 02:27; Status DC Sodium Chloride 100 ml @ As Directed STK-MED ONCE .ROUTE ; Start 10/31/17 at 02:41; Stop 10/31/17 at 02:42; Status DC Ceftriaxone Sodium (Rocephin) 1 gm QHS IVP Last administered on 10/31/17 20: 42; Start 10/31/17 at 21:00 Pneumococcal Polyvalent Vaccine (Pneumovax 23) 0.5 ml ONCE ONCE VAX IM ; Start 11/01/17 at 09:00; Stop 11/01/17 at 09:01; Status DC Pantoprazole Sodium (PROTONIX VIAL for IV PUSH) 40 mg BID IVP Last administered on 11/01/17 08:07; Start 10/31/17 at 11:45 Ceftriaxone Sodium 1 gm/ Sodium Chloride 50 ml @ 100 mls/hr Q24H IV ; Start at 12:00; Stop 10/31/17 at 12:19; Status DC Magnesium Hydroxide (Milk Of Magnesia) 2,400 mg PRN DAILY PRN PO CONSTIPATION; Start 11/01/17 at 09:45 Senna/Docusate Sodium (Senna Plus) 2 tab PRN BID PRN PO CONSTIPATION; Start at 09:45 Active Scripts Active Reported Atorvastatin Calcium 20 Mg Tablet 20 Mg PO QHS LAST DOSE GIVEN: DATE: TIME: NEXT DOSE DUE: DATE: TIME: Losartan Potassium 100 Mg Tablet 100 Mg PO DAILY LAST DOSE GIVEN: DATE: TIME: NEXT DOSE DUE: DATE: TIME: Amlodipine Besylate 5 Mg Tablet 1 Tab PO DAILY LAST DOSE GIVEN: DATE: TIME: NEXT DOSE DUE: DATE: TIME: Lasix (Furosemide) 20 Mg Tablet 1 Tab PO DAILY LAST DOSE GIVEN: DATE: TIME: NEXT DOSE DUE: DATE: TIME: Gabapentin 300 Mg Capsule 300 Mg PO TID LAST DOSE GIVEN: DATE: TIME: NEXT DOSE DUE: DATE: TIME: Aspirin 81 Mg Tab.chew 81 Mg PO DAILY LAST DOSE GIVEN: DATE: TIME: NEXT DOSE DUE: DATE: TIME: Omeprazole 20 Mg Capsule.dr Andrews Cap PO DAILY LAST DOSE GIVEN: DATE: TIME: NEXT DOSE DUE: DATE: TIME: Vitals/I & O Vital Sign - Last 24 Hours 10/31/17 10/31/17 10/31/17 10/31/17 11:03 11:13 11:37 11:37 Temp 98.6 98.6 98.9 98.9 Pulse 72 72 67 66 Resp 16 14 17 17 B/P (MAP) 133/57 133/57 (82) 137/57 (83) 138/57 Pulse Ox 99 99 O2 Delivery Room Air Room Air 10/31/17 10/31/17 10/31/17 10/31/17 12:37 12:37 13:37 13:37 Temp 98.7 98.8 99.1 98.1 Pulse 71 90 72 67 Resp 17 18 16 20 B/P (MAP) 167/61 167/61 (96) 130/51 (77) 130/51 Pulse Ox 99 98 O2 Delivery Room Air Room Air 10/31/17 10/31/17 10/31/17 10/31/17 14:15 14:37 15:40 16:00 Temp 98.7 Pulse 71 86 Resp 17 18 B/P (MAP) 141/62 (88) 133/64 (87) Pulse Ox 98 97 O2 Delivery Room Air Room Air Room Air Room Air 10/31/17 10/31/17 10/31/17 10/31/17 16:37 18:38 19:20 20:00 Temp 100.9 Pulse 69 98 Resp 15 20 B/P (MAP) 142/62 (88) 134/64 (87) Pulse Ox 97 97 O2 Delivery Room Air Room Air Room Air 10/31/17 10/31/17 10/31/17 10/31/17 20:16 21:12 23:00 23:59 Pulse 76 67 71 Resp 11 18 18 B/P (MAP) 168/72 (104) 149/74 (99) Pulse Ox 97 97 O2 Delivery Room Air Room Air Room Air Room Air 11/01/17 11/01/17 11/01/17 11/01/17 03:59 04:00 05:42 08:20 Temp 99.0 Pulse 74 70 Resp 14 21 B/P (MAP) 151/66 (94) 179/86 (117) Pulse Ox 100 97 O2 Delivery Room Air Room Air Room Air Room Air 11/01/17 09:54 Pulse 71 Resp 20 B/P (MAP) 161/85 (110) Pulse Ox 97 O2 Delivery Room Air Intake and Output 10/31/17 10/31/17 11/01/17 15:00 23:00 07:00 Intake Total 200 ml 600 ml 100 ml Output Total 300 ml 1250 ml 350 ml Balance -100 ml -650 ml -250 ml LEE KRISHNAMURTHY [employer] Nov 01, 2017 10:24
[2017-11-01] MEDS: LOSARTAN 25 MG TABLET. PO SCH (11:11)
[2017-11-01 13:00] VITALS: BP 155/61
[2017-11-01 18:47] VITALS: BP 160/60
--- NOTE | 2017-11-01 21:31 | PN ---
DATE: 10/30/2017 SUBJECTIVE: An 82-year-old -[place] female who came in the office feeling weak, tired, and some discomfort. The patient was noted to have a hemoglobin of 3.2, hematocrit of 10. As a result of this, the patient was admitted and placed on IV fluids as well as that of receiving 4 units of packed RBCs. Today, her hemoglobin and hematocrit is 8.5 and 25. The patient is feeling much better and stronger. Blood pressure 160/70, respiratory rate 20, pulse 90. She is running a low-grade temperature. IMAGES: Chest x-ray did show the possibility of a pneumonic process. As a result of this, the patient was admitted and continued with 4 units of blood transfusion before her acute respiratory distress and pneumonia as indicated. The patient was placed on IV antibiotic therapy and we will make further evaluation on that issue as well. PHYSICAL EXAMINATION: GENERAL: The patient is alert and oriented, feeling better. LUNGS: Diminished, but clear. CARDIOVASCULAR: Regular sinus rhythm. ABDOMEN: Soft, nontender, no rebound or guarding. Positive bowel sounds, no hepatosplenomegaly was noted. EXTREMITIES: No clubbing, cyanosis or edema. NEUROLOGIC: The patient was alert and oriented x 3. The patient will be admitted and continued to be monitored carefully. The patient has had negative stool so far. So, she has not had any evidence of acute GI bleed, and it was felt that the patient had probably gastritis from taking the aspirin. She is also extremely low on her iron at 17, and we will continue to monitor accordingly and make further evaluation on her as noted. IMPRESSION: 1. Anemia of unknown etiology. 2. Acute on top of chronic kidney disease. 3. [id number] protein malnutrition. 4. Iron deficiency anemia. PLAN: As above. AMBERLY SYED MD DR: TAMIA/anabell JOB#: [id number] / [id number]
[2017-11-01] MEDS: cefTRIAXone IV Push 1 GM VIAL. IVP SCH (21:43)
[2017-11-02 06:00] VITALS: BP 158/73
[2017-11-02 06:29] LABS: BASO # 0.1 x10^3/uL (0.0-0.2); BASO % 1 % (0-3); EOS # 0.2 x10^3/uL (0.0-0.7); EOS % 2 % (0-3); HEMATOCRIT 28.1 % (36.0-47.0); HEMOGLOBIN 9.2 g/dL (12.0-15.5); LYMPH # 1.8 x10^3/uL (1.0-4.8); LYMPH % 17 % (24-48); MEAN CORPUSCULAR HEMOGLOBIN 26 pg (25-35); MEAN CORPUSCULAR HGB CONC 33 g/dL (31-37); MEAN CORPUSCULAR VOLUME 78 fL (79-100); MONO # 0.8 x10^3/uL (0.0-1.1); MONO % 8 % (0-9); NEUT # 7.7 x10^3uL (1.8-7.7); NEUT % 72 % (31-73); PLATELET COUNT 287 x10^3/uL (140-400); RED BLOOD COUNT 3.61 x10^6/uL (3.50-5.40); WHITE BLOOD COUNT 10.7 x10^3/uL (4.0-11.0)
[2017-11-02 06:43] LABS: CALCIUM 8.3 mg/dL (8.5-10.1); CREATININE 1.2 mg/dL (0.6-1.0); GFR 52.2; POTASSIUM 3.8 mmol/L (3.5-5.1)
[2017-11-02] MEDS ORDERED: CONTRAST GIVEN MC PRN (07:15)
[2017-11-02] MEDS ORDERED: IOHEXOL 300 MG/ML 75 ML VIAL. IV ONE (07:15)
[2017-11-02] MEDS: SUCRALFATE 1 GM TABLET. PO SCH ×2 (08:20→11:20)
[2017-11-02] MEDS: PANTOPRAZOLE IV PUSH 40 MG VIAL. IVP SCH (08:20)
[2017-11-02] MEDS: LACTOBACILLUS RHAMNOSUS GG 1 CAPSULE. PO SCH (08:20)
[2017-11-02] MEDS: LOSARTAN 25 MG TABLET. PO SCH (08:25)
--- NOTE | 2017-11-02 08:43 | RAD ---
CTA of the chest with contrast, 11/02/2017: History: Positive d-dimer, chest pain Multidetector CT imaging was performed following an IV bolus injection of iodinated contrast material. Multiplanar reconstructions were produced including coronal and sagittal MIP images. The central pulmonary arteries are well opacified and no filling defects are seen to suggest pulmonary emboli. There is moderate calcific plaquing of the thoracic aorta without evidence of aneurysm or dissection. Moderate coronary artery calcifications are present. There is a moderate-sized hiatal hernia. There is mild bibasilar linear atelectasis and/or scarring. There is minimal pleural/parenchymal scarring over the apices. No pulmonary mass or significant consolidation is seen. Mild pleural thickening posteriorly on the right appears to be due to a trace amount of pleural fluid. There are moderate scattered degenerative changes in the spine. IMPRESSION: 1. No CT evidence of central pulmonary emboli. 2. Moderate calcific plaquing of the aorta and coronary arteries. 3. Moderate size hiatal hernia. 4. Tiny right pleural effusion. PQRS Compliance Statement: One or more of the following individualized dose reduction techniques were utilized for this examination: 1. Automated exposure control 2. Adjustment of the mA and/or kV according to patient size 3. Use of iterative reconstruction technique
[2017-11-02 09:30] VITALS: BP 184/92
[2017-11-02] MEDS ORDERED: PANT40TA3 PO ×2 (10:08→11:24)
[2017-11-02] MEDS ORDERED: LOSA100T6 PO ×2 (10:08→11:24)
[2017-11-02] MEDS ORDERED: SUCR1TAB35 PO ×2 (10:08→11:24)
--- NOTE | 2017-11-02 11:07 | PDOC ---
LEE KRISHNAMURTHY [employer] 11/02/17 1107: PROGRESS NOTES Assessment 1. chest pain, non cardiac, normal MPI recently at [facility]. 2. Anemia unknown origin - Hgb improved s/p 4 units PRBC. mgmt per PCP. 3. hypertension - blood pressure remains elevated. Resumed partial dose losartan yesterday. will increase today and resume low dose amlodipine. 4. PNA - per PCP Problems: Subjective tired but overall continues to feel better. no chest pain or dyspnea. no lightheadedness. Objective Vital Signs Date Time Temp Pulse Resp B/P (MAP) Pulse Ox O2 Delivery O2 Flow Rate FiO2 11/02/17 09:30 98.6 84 184/92 (122) 98 Room Air 11/02/17 06:00 26 Intake and Output 11/02/17 06:59 Intake Total 1210 ml Output Total 1050 ml Balance 160 ml Intake Oral 1210 ml Output Urine Total 1050 ml # Voids 2 Abdomen: Normal bowel sounds, Soft Heart: Regular rate, Normal S1, Normal S2 Extremities: No cyanosis, Normal pulses, Other (trace edema) General: Alert, Oriented X3, Cooperative, No acute distress Lungs: Clear to auscultation, Normal air movement Neuro: Normal speech, Strength at 5/5 X4 ext Psych/Mental Status: Mental status NL, Mood NL Review of Relevant I have reviewed the following items daja (where applicable) has been applied. Labs Laboratory Tests Test 10/31/17 14:35 11/01/17 05:34 11/02/17 05:36 Hemoglobin 8.5 g/dL (12.0-15.5) 9.0 g/dL (12.0-15.5) 9.2 g/dL (12.0-15.5) Hematocrit 25.8 % (36.0-47.0) 27.6 % (36.0-47.0) 28.1 % (36.0-47.0) Lactic Acid Level 1.5 mmol/L (0.4-2.0) White Blood Count 11.6 x10^3/uL (4.0-11.0) 10.7 x10^3/uL (4.0-11.0) Red Blood Count 3.60 x10^6/uL (3.50-5.40) 3.61 x10^6/uL (3.50-5.40) Mean Corpuscular Volume 77 fL (79-100) 78 fL (79-100) Mean Corpuscular Hemoglobin 25 pg (25-35) 26 pg (25-35) Mean Corpuscular Hemoglobin Concent 33 g/dL (31-37) 33 g/dL (31-37) Red Cell Distribution Width 21.4 % (11.5-14.5) 22.0 % (11.5-14.5) Platelet Count 284 x10^3/uL (140-400) 287 x10^3/uL (140-400) Neutrophils (%) (Auto) 69 % (31-73) 72 % (31-73) Lymphocytes (%) (Auto) 21 % (24-48) 17 % (24-48) Monocytes (%) (Auto) 7 % (0-9) 8 % (0-9) Eosinophils (%) (Auto) 2 % (0-3) 2 % (0-3) Basophils (%) (Auto) 0 % (0-3) 1 % (0-3) Neutrophils # (Auto) 8.0 x10^3uL (1.8-7.7) 7.7 x10^3uL (1.8-7.7) Lymphocytes # (Auto) 2.5 x10^3/uL (1.0-4.8) 1.8 x10^3/uL (1.0-4.8) Monocytes # (Auto) 0.8 x10^3/uL (0.0-1.1) 0.8 x10^3/uL (0.0-1.1) Eosinophils # (Auto) 0.2 x10^3/uL (0.0-0.7) 0.2 x10^3/uL (0.0-0.7) Basophils # (Auto) 0.1 x10^3/uL (0.0-0.2) 0.1 x10^3/uL (0.0-0.2) Segmented Neutrophils % 77 % (35-66) Lymphocytes % 19 % (24-48) Monocytes % 3 % (0-10) Eosinophils % 1 % (0-5) Nucleated Red Blood Cells 1 Toxic Granulation Slight Platelet Estimate Adequate (ADEQUATE) Large Platelets Occ Giant Platelets Occ Polychromasia Mod Hypochromasia Slight Poikilocytosis Slight Anisocytosis Mod Microcytosis Mod Tear Drop Cells Occ Ovalocytes Occ Sodium Level 145 mmol/L (136-145) 141 mmol/L (136-145) Potassium Level 3.8 mmol/L (3.5-5.1) 3.8 mmol/L (3.5-5.1) Chloride Level 113 mmol/L (98-107) 108 mmol/L (98-107) Carbon Dioxide Level 25 mmol/L (21-32) 25 mmol/L (21-32) Anion Gap 7 (6-14) 8 (6-14) Blood Urea Nitrogen 20 mg/dL (7-20) 12 mg/dL (7-20) Creatinine 1.3 mg/dL (0.6-1.0) 1.2 mg/dL (0.6-1.0) Estimated GFR (Cockcroft-Gault) 47.6 52.2 Glucose Level 105 mg/dL (70-99) 109 mg/dL (70-99) Calcium Level 8.5 mg/dL (8.5-10.1) 8.3 mg/dL (8.5-10.1) Microbiology 10/30/17 Blood Culture - Preliminary, Resulted NO GROWTH AFTER 2 DAYS 10/30/17 Urine Culture - Preliminary, Resulted 10/30/17 Urine Culture Result 1 (CRISTIAN) - Preliminary, Resulted Medications Current Medications Sodium Chloride 1,000 ml @ 100 mls/hr Q10H IV ; Start 10/30/17 at 18:10; Stop 10/30/17 at 18:24; Status DC Acetaminophen (Tylenol) 650 mg PRN Q6HRS PRN PO Headaches, Temp > 101.5F; Start 10/30/17 at 18:15; Stop 10/30/17 at 23:08; Status DC Ondansetron HCl (Zofran) 4 mg PRN Q8HRS PRN IV NAUSEA/VOMITING; Start at 18:15; Stop 10/30/17 at 23:08; Status DC Pneumococcal Polyvalent Vaccine (Pneumovax 23) 0.5 ml ONCE ONCE VAX IM ; Start 10/31/17 at 09:00; Stop 10/31/17 at 09:00; Status DC Acetaminophen (Tylenol) 650 mg PRN Q6HRS PRN PO Headaches, Temp > 101.5F; Start 10/31/17 at 18:15 Ondansetron HCl (Zofran) 4 mg PRN Q8HRS PRN IV NAUSEA/VOMITING; Start at 18:15 Sucralfate (Carafate) 1 gm QIDACHS PO Last administered on 11/02/17 08:20; Start 10/31/17 at 00:30 Pantoprazole Sodium 80 mg/ Sodium Chloride 100 ml @ 10 mls/hr Q10H IV Last administered on 10/31/17 03:07; Start 10/31/17 at 00:30; Stop 10/31/17 at 11 :33; Status DC Ceftriaxone Sodium 1 gm/ Sodium Chloride 50 ml @ 100 mls/hr QHS IV Last administered on 10/31/17 02:07; Start 10/31/17 at 00:30; Stop 10/31/17 at 07 :00; Status DC Levofloxacin/ Dextrose 100 ml @ 100 mls/hr 1X ONCE IV Last administered on 02:16; Start 10/31/17 at 01:00; Stop 10/31/17 at 01:59; Status DC Lactobacillus Rhamnosus (Culturelle) 1 cap BID PO Last administered on 08:20; Start 10/31/17 at 09:00 Levofloxacin/ Dextrose 100 ml @ 100 mls/hr Q48H IV Last administered on 06:01; Start 11/02/17 at 06:00 Pantoprazole Sodium (PROTONIX VIAL for IV PUSH) 40 mg STK-MED ONCE IVP ; Start 10/31/17 at 02:26; Stop 10/31/17 at 02:27; Status DC Sodium Chloride 100 ml @ As Directed STK-MED ONCE .ROUTE ; Start 10/31/17 at 02:41; Stop 10/31/17 at 02:42; Status DC Ceftriaxone Sodium (Rocephin) 1 gm QHS IVP Last administered on 11/01/17 21: 43; Start 10/31/17 at 21:00 Pneumococcal Polyvalent Vaccine (Pneumovax 23) 0.5 ml ONCE ONCE VAX IM Last administered on 11/02/17 10:32; Start 11/01/17 at 09:00; Stop 11/01/17 at 09 :01; Status DC Pantoprazole Sodium (PROTONIX VIAL for IV PUSH) 40 mg BID IVP Last administered on 11/02/17 08:20; Start 10/31/17 at 11:45 Ceftriaxone Sodium 1 gm/ Sodium Chloride 50 ml @ 100 mls/hr Q24H IV ; Start at 12:00; Stop 10/31/17 at 12:19; Status DC Magnesium Hydroxide (Milk Of Magnesia) 2,400 mg PRN DAILY PRN PO CONSTIPATION Last administered on 11/01/17 11:11; Start 11/01/17 at 09:45 Senna/Docusate Sodium (Senna Plus) 2 tab PRN BID PRN PO CONSTIPATION; Start at 09:45 Losartan Potassium (Cozaar) 25 mg DAILY PO Last administered on 11/02/17 08: 25; Start 11/01/17 at 10:30 Iohexol (Omnipaque 300 Mg/ml) 75 ml 1X ONCE IV Last administered on 08:00; Start 11/02/17 at 07:15; Stop 11/02/17 at 07:16; Status DC Info (Do NOT chart on this entry -- for MONITORING) 1 each PRN DAILY PRN MC SEE COMMENTS; Start 11/02/17 at 07:15; Stop 11/04/17 at 07:14 Active Scripts Active Carafate (Sucralfate) 1 Gm Tablet 1 Tab PO QID Protonix (Pantoprazole Sodium) 40 Mg Tablet. 1 Tab PO DAILY 30 Days Losartan Potassium 100 Mg Tablet 100 Mg PO DAILY 30 Days Reported Atorvastatin Calcium 20 Mg Tablet 20 Mg PO QHS LAST DOSE GIVEN: DATE: TIME: NEXT DOSE DUE: DATE: TIME: Losartan Potassium 100 Mg Tablet 100 Mg PO DAILY LAST DOSE GIVEN: DATE: TIME: NEXT DOSE DUE: DATE: TIME: Amlodipine Besylate 5 Mg Tablet 1 Tab PO DAILY LAST DOSE GIVEN: DATE: TIME: NEXT DOSE DUE: DATE: TIME: Lasix (Furosemide) 20 Mg Tablet 1 Tab PO DAILY LAST DOSE GIVEN: DATE: FRIDAY 11/02 TIME: 9AM NEXT DOSE DUE: DATE: SATURDAY 11/03 TIME: 9AM Gabapentin 300 Mg Capsule 300 Mg PO TID LAST DOSE GIVEN: DATE: FRIDAY 11/02 TIME: 9AM NEXT DOSE DUE: DATE: FRIDAY 11/02 TIME: 12PM Aspirin 81 Mg Tab.chew 81 Mg PO DAILY LAST DOSE GIVEN: DATE: FRIDAY 11/02 TIME: 9AM NEXT DOSE DUE: DATE: SATURDAY 11/03 TIME: 9AM Omeprazole 20 Mg Capsule.dr 1 Cap PO DAILY LAST DOSE GIVEN: DATE: FRIDAY 11/02 TIME: 9AM NEXT DOSE DUE: DATE: SATURDAY 11/03 TIME: 9AM Vitals/I & O Vital Sign - Last 24 Hours 11/01/17 11/01/17 11/01/17 11/01/17 11:11 13:00 18:47 20:00 Pulse 71 61 71 Resp 18 18 B/P (MAP) 161/85 155/61 (92) 160/60 (93) Pulse Ox 97 98 O2 Delivery Room Air Room Air Room Air 11/02/17 11/02/17 11/02/17 11/02/17 06:00 08:00 08:25 09:30 Temp 98.6 98.6 Pulse 73 84 84 Resp 26 B/P (MAP) 158/73 (101) 184/92 184/92 (122) Pulse Ox 98 98 O2 Delivery Room Air Room Air Room Air Intake and Output 11/01/17 11/01/17 11/02/17 14:59 22:59 06:59 Intake Total 660 ml 550 ml 0 ml Output Total 250 ml 800 ml Balance 410 ml 550 ml -800 ml DAYANNA BENITEZ MD 11/02/17 1424: PROGRESS NOTES Assessment The patient was seen and examined. Chest pain. Noncardiac. Recent MPI test at [facility] was normal. Severe anemia. Now resolved. Hemoglobin and hematocrit of 9.2 and 20.1. Hypertension. Also improved. Continue present medical treatment. Problems: LEE KRISHNAMURTHY APRN Nov 02, 2017 11:07 DAYANNA BENITEZ MD Nov 02, 2017 14:24
--- NOTE | 2017-11-02 11:23 | PN ---
DATE: 11/01/2017 SUBJECTIVE: The patient is an 82-year-old female who came in with initial hemoglobin of 3.2, hematocrit of 10. She is presently up to 9 and 27. She has not had a bowel movement, but she has had no blood in her stool, so it is still somewhat of a mystery although she is doing much better. Blood pressure is 160/60, respiratory rate 20, pulse 70, running low grade temperature. She was as high as 100.9 and the patient was placed on IV antibiotic therapy there. As noted, the patient may have had infiltrate in her lungs. In any case, the patient is resting fairly comfortably, making fairly good progress overall and there were no complications. She is feeling much better. OBJECTIVE: VITAL SIGNS: Blood pressure LUNGS: Diminished, some crackles noted in the bases. CARDIOVASCULAR: Regular sinus rhythm, 1/6 systolic ejection murmur. ABDOMEN: Soft, nontender, no rebound or guarding. Positive bowel sounds. No hepatosplenomegaly was noted. EXTREMITIES: No clubbing, cyanosis nor edema. IMPRESSION: Severe anemia, probable gastrointestinal bleed, pneumonia of unspecified etiology, community acquired, type 2 diabetes, iron-deficiency anemia. PLAN: The patient to continue on IV antibiotic therapy and make further evaluation on her as indicated. Otherwise, continue to monitor her CBC and we will make further evaluation at that time. AMBERLY SYED MD DR: TAMIA/anabell JOB#: [id number] / [id number]
[2017-11-02] MEDS ORDERED: LOSARTAN 25 MG TABLET. PO ONE (11:30)
[2017-11-03] MEDS ORDERED: LOSARTAN 50 MG TABLET. PO SCH (09:00)
[2017-11-03] MEDS ORDERED: amLODIPine BESYLATE 5 MG TABLET PO SCH (09:00)
== END 2017-11-02 13:37 | disposition home or self-care (01) | DRG 811 ==
LOC: 1 SOUTH 17:08 → ICU 21:50
PROVIDERS: ADMIT Family Medicine; ATTEND Family Medicine
PROC: 30233N1 Transfusion of Nonautologous Red Blood Cells into Peripheral Vein, Percutaneous Approach (ICD-10-PCS; principal; 2017-10-31)
DX: D50.9 Iron deficiency anemia, unspecified (principal); J18.9 Pneumonia, unspecified organism; E44.0 Moderate protein-calorie malnutrition; E11.22 Type 2 diabetes mellitus with diabetic chronic kidney disease; M62.82 Rhabdomyolysis; I12.9 Hypertensive chronic kidney disease with stage 1 through stage 4 chronic kidney disease, or unspecified chronic kidney disease; E78.5 Hyperlipidemia, unspecified; K21.9 Gastro-esophageal reflux disease without esophagitis; Z68.26 Body mass index [BMI] 26.0-26.9, adult
CPT/HCPCS: 36415; 71010; 71275; 80048; 80053; 81001; 82550; 82607; 82947; 83540; 83550; 83605; 83735; 83880; 84443; 84484; 85007; 85014; 85018; 85025; 85379; 86850; 86900; 86901; 86920; 87040; 87086; 87641; 87804; 90732; 93005; 93306; C9113; J0696; J1956; P9016; Q9967

== ENCOUNTER → 2017-11-29 | Day surgery (SDC) | payer MEDICARE, OTHER ==
[2017-11-02 09:30] VITALS: BP 184/92
[~2017-11-29] MED LIST: AMLO5TAB2 PO; ASPI-630 PO; ATOR20TA58 PO; FURO-69 PO; GABA-586 PO; IV NORMAL SALINE 1,000ML 1,000 ML ONE; LIDOCAINE 2% PF Vial for OR 5 ML VIAL. ONE; LOSA100T6 PO; OMEP20CA9 PO; PANT40TA3 PO; PROPOFOL 60 ML IV ONE; SUCR1TAB35 PO
== END | disposition home or self-care (01) ==
LOC: SURG 10:46
PROVIDERS: ATTEND Internal Medicine Gastroenterology
DX: K64.8 Other hemorrhoids (principal); K57.30 Diverticulosis of large intestine without perforation or abscess without bleeding; D50.9 Iron deficiency anemia, unspecified; K44.9 Diaphragmatic hernia without obstruction or gangrene; Z88.2 Allergy status to sulfonamides; Z88.8 Allergy status to other drugs, medicaments and biological substances; Z79.899 Other long term (current) drug therapy
CPT/HCPCS: 43239; 45378; 82947; J2704; J2001; J7030

== ENCOUNTER 2017-12-14 13:10 | Emergency (ER) | payer MEDICARE, OTHER ==
[~2017-12-14] VITALS: Ht 165.1 cm; Wt 71.2 kg
[~2017-12-14 13:10] MED LIST changes: -IV NORMAL SALINE 1,000ML 1,000 ML ONE; -LIDOCAINE 2% PF Vial for OR 5 ML VIAL. ONE; -PROPOFOL 60 ML IV ONE
[2017-12-14 14:11] LABS: HEMOGLOBIN ISTAT 7.1 gm/dL; POTASSIUM ISTAT 4.3 mmol/L (3.5-5.0)
--- NOTE | 2017-12-14 14:29 | PHYS DOC ---
General Chief Complaint: ABNORMAL LABS Stated Complaint: ABN LABS Time Seen by MD: 13:21 Source: patient, RN/MD Exam Limitations: no limitations Problems: History of Present Illness Initial Comments Patient is a 82-year-old female brought to the ED by family at the request of their doctor for anemia. Family states the patient was admitted to the hospital November 30 with a hemoglobin of 3, 3 days later she was discharged with hemoglobin of 9. She has since followed up with GI, she's had an EGD and colonoscopy which showed hiatal hernia no active bleed as well as H. pylori infection. Patient is currently on medications for GERD and H. pylori infection, she was seen yesterday at Dr. Kitchen's office and labs revealed hemoglobin of 7.2. Upon review of the return to labs Dr. Kitchen requested the patient go to the emergency department for recheck of hemoglobin and symptoms. Patient states she has no pain complaints she denies fatigue headache dyspnea on exertion chest pain hematemesis melena or hematochezia. She had iron studies done earlier this week and labs were requested. ED vital signs are stable Timing/Duration: other Severity: moderate Modifying Factors: improves with other Associated Symptoms: other Allergies: Coded Allergies: Sulfa (Sulfonamide Antibiotics) (Verified Allergy, Unknown, RASH, 03/16/17) glyburide (Verified Allergy, Unknown, 03/16/17) Past Medical History Medical History: other (anemia, hypertension, hiatal hernia, H pylori) Surgical History: noncontributory Social History Smoker: non-smoker Alcohol: none Drugs: none Review of Systems Constitutional: denies chills, denies fever, denies malaise Respiratory: denies cough, denies shortness of breath Cardiovascular: denies chest pain, denies palpitations, denies syncope Gastrointestinal: see HPI Genitourinary: denies dysuria, denies frequency, denies hematuria Musculoskeletal: denies back pain, denies joint swelling, denies neck pain Psychiatric/Neurological: denies headache, denies numbness, denies paresthesia , denies weakness Hematologic/Lymphatic: see HPI Physical Exam General Appearance: WD/WN, no apparent distress Eyes: bilateral eye normal inspection, bilateral eye PERRL, bilateral eye EOMI Ear, Nose, Throat: hearing grossly normal, normal ENT inspection, normal pharynx Neck: non-tender, supple Respiratory: normal breath sounds, no respiratory distress Cardiovascular: normal peripheral pulses, regular rate, rhythm Gastrointestinal: non tender, soft Extremities: non-tender, normal inspection 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 Kitchen and discuss her anemia status. He recommends discharge home to follow up with him at his office on Sunday. I requested thyroid studies done yesterday at Dr. Kitchen's office and if needed will discharge the patient with iron supplementations. Labs were received from PCP office and I studies were not contained. Patient follow-up with Dr. Kitchen on Sunday for recheck, she left the department in good condition. Departure Time of Disposition: 15:16 Disposition: 01 HOME, SELF-CARE Diagnosis: microcytic anemia Condition: STABLE Patient Instructions: Anemia, Nonspecific-Brief Additional Instructions: Rest, no strenuous activity. Drink plenty of fluids to avoid dehydration. Continue current medications. Follow-up with Dr. Kitchen on Sunday for recheck of hemoglobin and current symptoms. Return to ED with new or changing symptoms. HOLLY ALVAREZ DO Dec 14, 2017 14:29
[2017-12-14 14:37] VITALS: BP 130/64
== END 2017-12-14 15:31 | disposition home or self-care (01) ==
LOC: ER 13:10
DX: D50.9 Iron deficiency anemia, unspecified (principal); I10 Essential (primary) hypertension; K21.9 Gastro-esophageal reflux disease without esophagitis; Z88.2 Allergy status to sulfonamides; Z88.8 Allergy status to other drugs, medicaments and biological substances
CPT/HCPCS: 36415; 80047; 85014; 85018; 99282

== ENCOUNTER → 2018-05-27 | Outpatient (CLI) | payer MEDICARE, OTHER ==
[2018-05-27 13:51] LABS: BASO # 0.1 x10^3/uL (0.0-0.2); BASO % 1 % (0-3); EOS # 0.1 x10^3/uL (0.0-0.7); EOS % 2 % (0-3); HEMOGLOBIN 11.8 g/dL (12.0-15.5); LYMPH # 1.8 x10^3/uL (1.0-4.8); LYMPH % 27 % (24-48); MEAN CORPUSCULAR HEMOGLOBIN 28 pg (25-35); MEAN CORPUSCULAR HGB CONC 33 g/dL (31-37); MEAN CORPUSCULAR VOLUME 85 fL (79-100); MONO # 0.5 x10^3/uL (0.0-1.1); MONO % 8 % (0-9); NEUT # 4.1 x10^3uL (1.8-7.7); NEUT % 62 % (31-73); PLATELET COUNT 228 x10^3/uL (140-400); RED BLOOD COUNT 4.26 x10^6/uL (3.50-5.40); RED CELL DISTRIBUTION WIDTH 14.4 % (11.5-14.5); WHITE BLOOD COUNT 6.6 x10^3/uL (4.0-11.0)
[2018-05-27 13:59] LABS: ALBUMIN 3.8 g/dL (3.4-5.0); CALCIUM 9.3 mg/dL (8.5-10.1); CREATININE 1.6 mg/dL (0.6-1.0); GFR 37.3; POTASSIUM 4.4 mmol/L (3.5-5.1)
[2018-05-28 15:08] LABS: CALCIUM PTH 9.2 mg/dL (8.7-10.3); CREATININE PTH 1.36 mg/dL (0.57-1.00); PTH INTACT 134 pg/mL (15-65)
== END | disposition home or self-care (01) ==
LOC: LAB 12:02
PROVIDERS: ATTEND Internal Medicine Nephrology
DX: I12.9 Hypertensive chronic kidney disease with stage 1 through stage 4 chronic kidney disease, or unspecified chronic kidney disease (principal); E11.21 Type 2 diabetes mellitus with diabetic nephropathy; N18.3 Chronic kidney disease, stage 3 (moderate); D63.1 Anemia in chronic kidney disease; E78.00 Pure hypercholesterolemia, unspecified; K21.9 Gastro-esophageal reflux disease without esophagitis; Z68.35 Body mass index [BMI] 35.0-35.9, adult
CPT/HCPCS: 36415; 80069; 83540; 83550; 83970; 85025

== ENCOUNTER → 2019-04-21 | Outpatient (CLI) | payer MEDICARE, OTHER ==
[~2019-04-21] MED LIST changes: +AMLO5TAB10 PO; -AMLO5TAB2 PO; +LOSA100T14 PO; -LOSA100T6 PO; +OMEP20CA10 PO; -OMEP20CA9 PO
[2019-04-21 16:36] LABS: BASO # 0.1 x10^3/uL (0.0-0.2); BASO % 1 % (0-3); EOS # 0.1 x10^3/uL (0.0-0.7); EOS % 2 % (0-3); HEMATOCRIT 32.4 % (36.0-47.0); HEMOGLOBIN 10.4 g/dL (12.0-15.5); LYMPH # 1.7 x10^3/uL (1.0-4.8); LYMPH % 24 % (24-48); MEAN CORPUSCULAR HEMOGLOBIN 26 pg (25-35); MEAN CORPUSCULAR HGB CONC 32 g/dL (31-37); MEAN CORPUSCULAR VOLUME 81 fL (79-100); MONO # 0.7 x10^3/uL (0.0-1.1); MONO % 9 % (0-9); NEUT # 4.7 x10^3uL (1.8-7.7); NEUT % 65 % (31-73); PLATELET COUNT 274 x10^3/uL (140-400); RED BLOOD COUNT 3.99 x10^6/uL (3.50-5.40); RED CELL DISTRIBUTION WIDTH 14.6 % (11.5-14.5); WHITE BLOOD COUNT 7.2 x10^3/uL (4.0-11.0)
[2019-04-21 16:48] LABS: ALBUMIN 3.5 g/dL (3.4-5.0); CALCIUM 9.4 mg/dL (8.5-10.1); CREATININE 1.9 mg/dL (0.6-1.0); GFR 30.6; PHOSPHORUS 3.4 mg/dL (2.6-4.7); POTASSIUM 4.6 mmol/L (3.5-5.1)
== END | disposition home or self-care (01) ==
LOC: LAB 16:02
PROVIDERS: ATTEND Internal Medicine Nephrology
DX: I13.10 Hypertensive heart and chronic kidney disease without heart failure, with stage 1 through stage 4 chronic kidney disease, or unspecified chronic kidney disease (principal); E11.22 Type 2 diabetes mellitus with diabetic chronic kidney disease; N18.3 Chronic kidney disease, stage 3 (moderate); Z68.30 Body mass index [BMI] 30.0-30.9, adult
CPT/HCPCS: 36415; 80069; 83970; 85025

== ENCOUNTER → 2019-05-01 | Outpatient (CLI) | payer MEDICARE, OTHER ==
--- NOTE | 2019-05-01 17:06 | RAD ---
Chest, 2 views, 05/01/2019: HISTORY: Hypertension, shortness of breath Comparison is made to a study from 10/30/2017. There is a moderate size retrocardiac mass containing fluid compatible with a hiatal hernia. The heart is probably within normal limits in size. There is extensive calcific plaquing of the aorta. The pulmonary vascularity is normal. There is mild streaky atelectasis or scarring in the left base. The right lung is clear. There is no evidence of pleural fluid. Moderate multilevel degenerative changes are present in the spine. IMPRESSION: 1. Moderate sized hiatal hernia. 2. Mild left basilar linear atelectasis and/or scarring. Electronically signed by: Car Chew MD (05/01/2019 5:03 PM) [facility]
== END | disposition home or self-care (01) ==
LOC: DXRAD 15:20
PROVIDERS: ATTEND Internal Medicine Nephrology
DX: K44.9 Diaphragmatic hernia without obstruction or gangrene (principal); I70.0 Atherosclerosis of aorta; I10 Essential (primary) hypertension
CPT/HCPCS: 71046

== ENCOUNTER → 2020-01-15 | Outpatient (CLI) | payer MEDICARE, OTHER ==
[~2020-01-15] MED LIST changes: -OMEP20CA10 PO; +OMEP20CA16 PO
[2020-01-15 13:27] LABS: BASO % 1 % (0-3); EOS # 0.1 x10^3/uL (0.0-0.7); EOS % 2 % (0-3); HEMATOCRIT 33.3 % (36.0-47.0); HEMOGLOBIN 10.6 g/dL (12.0-15.5); LYMPH # 1.4 x10^3/uL (1.0-4.8); LYMPH % 26 % (24-48); MEAN CORPUSCULAR HEMOGLOBIN 27 pg (25-35); MEAN CORPUSCULAR HGB CONC 32 g/dL (31-37); MEAN CORPUSCULAR VOLUME 85 fL (79-100); MONO # 0.4 x10^3/uL (0.0-1.1); MONO % 6 % (0-9); NEUT # 3.7 x10^3uL (1.8-7.7); NEUT % 66 % (31-73); PLATELET COUNT 273 x10^3/uL (140-400); RED BLOOD COUNT 3.91 x10^6/uL (3.50-5.40); RED CELL DISTRIBUTION WIDTH 15.6 % (11.5-14.5); WHITE BLOOD COUNT 5.7 x10^3/uL (4.0-11.0)
[2020-01-15 13:38] LABS: ALBUMIN 3.7 g/dL (3.4-5.0); CALCIUM 9.6 mg/dL (8.5-10.1); CREATININE 1.4 mg/dL (0.6-1.0); GFR 43.5; PHOSPHORUS 3.8 mg/dL (2.6-4.7); POTASSIUM 4.5 mmol/L (3.5-5.1)
[2020-01-16 13:08] LABS: CALCIUM PTH 10.1 mg/dL (8.7-10.3); CREATININE PTH 1.32 mg/dL (0.57-1.00); PTH INTACT 78 pg/mL (15-65)
== END ==
LOC: LAB 12:24
PROVIDERS: ATTEND Internal Medicine Nephrology
DX: E11.22 Type 2 diabetes mellitus with diabetic chronic kidney disease (principal); I12.9 Hypertensive chronic kidney disease with stage 1 through stage 4 chronic kidney disease, or unspecified chronic kidney disease; N18.3 Chronic kidney disease, stage 3 (moderate); Z68.31 Body mass index [BMI] 31.0-31.9, adult
CPT/HCPCS: 36415; 80069; 83970; 85025

== ENCOUNTER → 2020-04-09 | Outpatient (CLI) | payer MEDICARE, OTHER ==
[2020-04-09 11:53] LABS: BASO % 1 % (0-3); EOS # 0.1 x10^3/uL (0.0-0.7); EOS % 3 % (0-3); HEMATOCRIT 34.4 % (36.0-47.0); HEMOGLOBIN 11.1 g/dL (12.0-15.5); LYMPH # 1.4 x10^3/uL (1.0-4.8); LYMPH % 26 % (24-48); MEAN CORPUSCULAR HEMOGLOBIN 26 pg (25-35); MEAN CORPUSCULAR HGB CONC 32 g/dL (31-37); MEAN CORPUSCULAR VOLUME 81 fL (79-100); MONO # 0.4 x10^3/uL (0.0-1.1); MONO % 8 % (0-9); NEUT # 3.5 x10^3uL (1.8-7.7); NEUT % 63 % (31-73); PLATELET COUNT 229 x10^3/uL (140-400); RED BLOOD COUNT 4.23 x10^6/uL (3.50-5.40); RED CELL DISTRIBUTION WIDTH 15.4 % (11.5-14.5); WHITE BLOOD COUNT 5.6 x10^3/uL (4.0-11.0)
[2020-04-09 11:54] LABS: ALBUMIN 3.7 g/dL (3.4-5.0); CALCIUM 9.3 mg/dL (8.5-10.1); CREATININE 1.8 mg/dL (0.6-1.0); GFR 32.5; PHOSPHORUS 3.3 mg/dL (2.6-4.7); POTASSIUM 4.4 mmol/L (3.5-5.1)
[2020-04-10 01:06] LABS: CALCIUM PTH 9.7 mg/dL (8.7-10.3); CREATININE PTH 1.63 mg/dL (0.57-1.00); PTH INTACT 101 pg/mL (15-65)
== END | disposition home or self-care (01) ==
LOC: LAB 11:10
PROVIDERS: ATTEND Internal Medicine Nephrology
DX: I12.9 Hypertensive chronic kidney disease with stage 1 through stage 4 chronic kidney disease, or unspecified chronic kidney disease (principal); N18.3 Chronic kidney disease, stage 3 (moderate); E11.21 Type 2 diabetes mellitus with diabetic nephropathy; E11.22 Type 2 diabetes mellitus with diabetic chronic kidney disease; Z68.31 Body mass index [BMI] 31.0-31.9, adult
CPT/HCPCS: 36415; 80069; 83970; 85025

== ENCOUNTER → 2020-10-23 | Outpatient (CLI) | payer MEDICARE, OTHER ==
[~2020-10-23] MED LIST changes: +AMLO-186 PO; -AMLO5TAB10 PO
[2020-10-23 20:23] LABS: BILIRUBIN,URINE NEG (NEG); CLARITY,URINE CLEAR; COLOR,URINE STRAW; GLUCOSE,URINE NEG (NEG)
[2020-10-23 20:24] LABS: NITRITE,URINE NEG (NEG); UROBILINOGEN,URINE 0.2 mg/dL (0.2 mg/dL)
[2020-10-23 20:31] LABS: BACTERIA,URINE 0 /HPF (0-FEW); RBC,URINE 0 /HPF (0-2); SQUAMOUS EPITHELIAL CELL,UR OCC /LPF; WBC,URINE 0 /HPF (0-4)
== END ==
LOC: LAB 19:55
PROVIDERS: ATTEND Family Medicine
DX: N39.0 Urinary tract infection, site not specified (principal)
CPT/HCPCS: 81001

== ENCOUNTER → 2021-03-07 | Outpatient (CLI) | payer MEDICARE, OTHER ==
[2021-03-07 15:37] LABS: BASO # 0.1 x10^3/uL (0.0-0.2); BASO % 1 % (0-3); EOS # 0.2 x10^3/uL (0.0-0.7); EOS % 2 % (0-3); HEMATOCRIT 34.4 % (36.0-47.0); LYMPH # 1.9 x10^3/uL (1.0-4.8); LYMPH % 24 % (24-48); MEAN CORPUSCULAR HEMOGLOBIN 26 pg (25-35); MEAN CORPUSCULAR HGB CONC 32 g/dL (31-37); MEAN CORPUSCULAR VOLUME 81 fL (79-100); MONO # 0.7 x10^3/uL (0.0-1.1); MONO % 9 % (0-9); NEUT % 65 % (31-73); PLATELET COUNT 261 x10^3/uL (140-400); RED BLOOD COUNT 4.27 x10^6/uL (3.50-5.40); RED CELL DISTRIBUTION WIDTH 15.3 % (11.5-14.5); WHITE BLOOD COUNT 7.8 x10^3/uL (4.0-11.0)
[2021-03-07 16:01] LABS: ALBUMIN 3.6 g/dL (3.4-5.0); CALCIUM 9.3 mg/dL (8.5-10.1); CREATININE 1.8 mg/dL (0.6-1.0); GFR 32.4; PHOSPHORUS 3.5 mg/dL (2.6-4.7); POTASSIUM 5.1 mmol/L (3.5-5.1)
[2021-03-08 15:10] LABS: CALCIUM PTH 9.6 mg/dL (8.7-10.3); CREATININE PTH 1.74 mg/dL (0.57-1.00); PTH INTACT 91 pg/mL (15-65)
== END ==
LOC: LAB 15:03
PROVIDERS: ATTEND Internal Medicine Nephrology
DX: E11.21 Type 2 diabetes mellitus with diabetic nephropathy (principal)
CPT/HCPCS: 36415; 80069; 83970; 85025

== ENCOUNTER → 2021-10-06 | Outpatient (CLI) | payer MEDICARE, OTHER ==
[2021-10-06 15:19] LABS: BASO % 1 % (0-3); EOS # 0.1 x10^3/uL (0.0-0.7); EOS % 2 % (0-3); HEMATOCRIT 37.6 % (36.0-47.0); HEMOGLOBIN 12.2 g/dL (12.0-15.5); LYMPH # 1.9 x10^3/uL (1.0-4.8); LYMPH % 27 % (24-48); MEAN CORPUSCULAR HEMOGLOBIN 28 pg (25-35); MEAN CORPUSCULAR HGB CONC 32 g/dL (31-37); MEAN CORPUSCULAR VOLUME 86 fL (79-100); MONO # 0.5 x10^3/uL (0.0-1.1); MONO % 8 % (0-9); NEUT # 4.5 x10^3uL (1.8-7.7); NEUT % 63 % (31-73); PLATELET COUNT 225 x10^3/uL (140-400); RED BLOOD COUNT 4.39 x10^6/uL (3.50-5.40); RED CELL DISTRIBUTION WIDTH 14.1 % (11.5-14.5); WHITE BLOOD COUNT 7.1 x10^3/uL (4.0-11.0)
[2021-10-06 15:48] LABS: ALBUMIN 3.5 g/dL (3.4-5.0); CALCIUM 9.3 mg/dL (8.5-10.1); CREATININE 1.7 mg/dL (0.6-1.0); GFR 34.6; PHOSPHORUS 2.9 mg/dL (2.6-4.7); POTASSIUM 4.5 mmol/L (3.5-5.1)
[2021-10-07 11:20] LABS: CALCIUM PTH 9.8 mg/dL (8.7-10.3); PTH INTACT 66 pg/mL (15-65)
== END ==
LOC: LAB 14:25
PROVIDERS: ATTEND Internal Medicine Nephrology
DX: I12.9 Hypertensive chronic kidney disease with stage 1 through stage 4 chronic kidney disease, or unspecified chronic kidney disease (principal); N18.32 Chronic kidney disease, stage 3b; Z68.31 Body mass index [BMI] 31.0-31.9, adult
CPT/HCPCS: 36415; 80069; 83970; 85025

== ENCOUNTER 2021-12-11 20:15 | Emergency (ER) | payer MEDICARE, OTHER ==
[~2021-12-11] VITALS: Ht 165.1 cm; Wt 82.7 kg
--- NOTE | 2021-12-11 21:16 | RAD ---
Exam: CT head and cervical spine INDICATION: Stomach wall and fall hit back of head on ground TECHNIQUE: Sequential axial images through the head and cervical spine were obtained without the admi nistration of IV contrast. Exposure: One or more of the following in the visualized dose reduction techniques were utilized for this examination: 1. Automated exposure control 2. Adjustment of the MA and/or KV according to patient size 3. Use of iterative of reconstructive technique Comparisons: None FINDINGS: Head: No focal parenchymal lesion or hemorrhage is identified. There is no midline shift or sulcal effaceme nt. Mild patchy hypodensity in the periventricular white matter. No acute vascular territory infarction i s identified. Fernando-white distinction is preserved. The ventricular system is within normal limits without compression hydrocephalus. The basal cisterns are well maintained. Mild extra cranial soft tissue scalp contusion overlying the vertex. The visualized portions of the p aranasal sinuses and mastoid air cells are well-pneumatized. No acute fractures. Cervical spine: Straightening of the cervical spine which may positional. Vertebral body heights are well-maintained. Fracture to the cervical spine is not identified. Multilevel spondylotic change in cervical spine with degenerative disc disease greatest at C6-C7. Mil d bilateral facet arthropathy is noted in cervical spine. Visualized paraspinal soft tissues are unremarkable. IMPRESSION: 1. Extra cranial soft tissue scalp contusion overlying the vertex without underlying osseous or intr acranial abnormality. 2. Negative CT C-spine for acute traumatic injury. Electronically signed by: Norman Hatch MD (12/11/2021 9:13 PM) [facility]
[2021-12-11 21:26] VITALS: BP 165/88
--- NOTE | 2021-12-11 21:28 | PHYS DOC ---
Past History Past Medical History: Diabetes, High Cholesterol, Hypertension, Renal Failure (АНДРЕЙ ROMERO APRN) Past Surgical History: Other (АНДРЕЙ ROMERO APRN) Alcohol Use: None Drug Use: None (АНДРЕЙ ROMERO APRN) Adult General Chief Complaint Chief Complaint: MECHANICAL FALL HPI HPI Patient is a 86-year-old female who presents to the emergency department concerning a stumble and fall at approximately 1830 this evening. Patient reports her shoe slipped off her foot, she was trying to slip her shoe back on her foot when she lost her balance and fell backwards onto her bottom and then striking her head on the kitchen floor. Patient denies loss of consciousness. Reports she was able to get herself up and call her daughter for assistance. Patient reports having pain to the back of her head with some minor bleeding. States her last tetanus immunization was in 2019. Denies pain to her head or neck. Denies visual disturbances, dizzy spells, syncopal or near syncopal episodes, denies chest pain or chest discomfort. Denies chest palpitations. Denies other physical complaints or physical concerns. (АНДРЕЙ ROMERO APRN) Review of Systems Review of Systems 14 body systems of review of systems have been reviewed. See HPI for pertinent positives and negative responses, otherwise all other systems are negative, nonpertinent or noncontributory. Constitutional: Negative except as outlined in HPI above. Skin: Negative except as outlined in HPI above. Eyes: Negative except as outlined in HPI above. HENT: Negative except as outlined in HPI above. Respiratory: Negative except as outlined in HPI above. Cardiovascular: Negative except as outlined in HPI above. GI: Negative except as outlined in HPI above. : Negative except as outlined in HPI above. Musculoskeletal: Negative except as outlined in HPI above. Integument: Negative except as outlined in HPI above. Neurologic: Negative except as outlined in HPI above. Endocrine: Negative except as outlined in HPI above. Lymphatic: Negative except as outlined in HPI above. Psychiatric: Negative except as outlined in HPI above. (АНДРЕЙ ROMERO APRN) Allergies Allergies Allergies Coded Allergies Type Severity Reaction Last Updated Verified Sulfa (Sulfonamide Antibiotics) Allergy Unknown RASH 03/16/17 Yes glyburide Allergy Unknown 03/16/17 Yes (АНДРЕЙ ORMERO APRN) Physical Exam Physical Exam Constitutional: Well developed, well nourished, no acute distress, non-toxic appearance. 86-year-old female in no apparent distress. HENT: Normocephalic, contusion to center occipital area of head with 1.2 cm laceration. Bleeding controlled with bandage. No skull depressions appreciated, no crepitus appreciated, no battles sign, no raccoon eyes, bilateral TMs intact and within normal limits. No drooling, no trismus, no malocclusion. Patient speaking in normal voice tones and sentences. Eyes: Conjunctiva normal, no discharge. Satisfactory 6 cardinal eye movements. Neck: Normal range of motion, no stridor. No central C-spine pain to palpation, no pain to palpation of the muscular structures of the neck. Cardiovascular: No cyanosis appreciated, distal cap refill less than 2 seconds. Lungs & Thorax: Patient is in no respiratory distress, no audible adventitious lung sounds appreciated. Abdomen: Nontender, no abnormalities noted. Skin: Warm, dry, no erythema, no rash. See HEENT note for focused skin examination. Back: No tenderness, no deformities. Extremities: No tenderness, no cyanosis, no clubbing, ROM intact, no edema. Neurologic: Alert and oriented X 3, normal motor function, normal sensory function, no focal deficits noted. Psychologic: Affect normal, judgement normal, mood normal. (АНДРЕЙ ROMERO APRN) Current Patient Data Vital Signs Vital Signs Date Time Temp Pulse Resp B/P (MAP) Pulse Ox O2 Delivery O2 Flow Rate FiO2 12/11/21 20:42 98.2 85 16 195/82 (119) 96 Room Air (АНДРЕЙ ROMERO APRN) EKG EKG [] (АНДРЕЙ ROMERO APRN) Radiology/Procedures Radiology/Procedures STATUS: REG ER ORD. PHYSICIAN: АНДРЕЙ ROMERO APRN REASON: Stumble and fall hit back of head on ground PROCEDURE: CT HEAD AND CERVICAL SPINE WO Exam: CT head and cervical spine INDICATION: Stomach wall and fall hit back of head on ground TECHNIQUE: Sequential axial images through the head and cervical spine were obtained without the administration of IV contrast. Exposure: One or more of the following in the visualized dose reduction techniques were utilized for this examination: 1. Automated exposure control 2. Adjustment of the MA and/or KV according to patient size 3. Use of iterative of reconstructive technique Comparisons: None FINDINGS: Head: No focal parenchymal lesion or hemorrhage is identified. There is no midline shift or sulcal effacement. Mild patchy hypodensity in the periventricular white matter. No acute vascular territory infarction is identified. Fernando-white distinction is preserved. The ventricular system is within normal limits without compression hydrocephalus. The basal cisterns are well maintained. Mild extra cranial soft tissue scalp contusion overlying the vertex. The visualized portions of the paranasal sinuses and mastoid air cells are well- pneumatized. No acute fractures. Cervical spine: Straightening of the cervical spine which may positional. Vertebral body heights are well-maintained. Fracture to the cervical spine is not identified. Multilevel spondylotic change in cervical spine with degenerative disc disease greatest at C6-C7. Mild bilateral facet arthropathy is noted in cervical spine. Visualized paraspinal soft tissues are unremarkable. IMPRESSION: 1. Extra cranial soft tissue scalp contusion overlying the vertex without underlying osseous or intracranial abnormality. 2. Negative CT C-spine for acute traumatic injury. (АНДРЕЙ ROMERO APRN) Heart Score C/O Chest Pain: No Risk Factors: Risk Factors: DM, Current or recent (<one month) smoker, HTN, HLP, family history of CAD, obesity. Risk Scores: Risk Factors: DM, Current or recent (<one month) smoker, HTN, HLP, family history of CAD, obesity. (АНДРЕЙ ROMERO APRN) Course & Med Decision Making Course & Med Decision Making Pertinent Labs and Imaging studies reviewed. (See chart for details) 86-year-old female, vital signs reviewed, presents emergency department after a stumble and fall striking the back of her head. Physical examination is consistent with patient's explanation of events. Will order CT head and C- spine, the patient's tetanus immunization is up-to-date, ice pack to occipital area, will repair still occipital laceration of scalp. See laceration repair note. Discussed with patient staple care, ice packs application, [id number] pain medication use, head injury precautions, strict follow-up with primary care this week, return to ER precautions and concerns were reviewed, patient and patient's daughter gave verbal understanding of and is amenable to ED discharge planning. Discussed with the patient all findings and diagnostic testing as well as the need to follow-up with their primary care provider for further evaluation and treatment or return to the ED if any new or worsening symptoms. Strict return precautions were also discussed at length, the patient voiced understanding and agreement with the discharge planning. The patient was nontoxic in appearance, in no apparent distress, and hemodynamically stable at the time of disposition. (АНДРЕЙ ROMERO APRN) Course & Med Decision Making Did not see or evaluate patient. Did not discuss patient with CRIMINAL RESEARCH SPECIALIST. Agree with CRIMINAL RESEARCH SPECIALIST's work-up and disposition per note. (LALO DE LEÓN MD) Dragon Disclaimer Dragon Disclaimer This electronic medical record was generated, in whole or in part, using a voice recognition dictation system. (АНДРЕЙ ROMERO APRN) Laceration Repair Lac Repair Indication: Scalp laceration Time: 1929 Confirmed: Patient, procedure, side, and site correct. Consent: Patient, has given verbal consent. Description/repair Procedure: The patient was placed in the appropriate position and anesthesia around the laceration not indicated for this repair. The area was then vigorously cleansed with copious amounts normal saline. The laceration was closed with two dermal yohannes. The wound area was then dressed with bacitracin per ED nursing staff.. Complexity: Single layer. Post procedure exam: Circulation, motor, sensory examination intact, bleeding controlled. Total repaired wound length: 1.2 cm. Other Items: There were no other items. The patient tolerated the procedure well. Complications: There were no complications. Performed by: Андрей Myers, CRIMINAL RESEARCH SPECIALIST-C Supervision: Dr. De León was present for consult regarding the critical aspects of the procedure including closure and post procedure exam. Total time: 5 minutes. (АНДРЕЙ ROMERO APRN) Departure Departure: Impression: Primary Impression: Scalp contusion Additional Impressions: Scalp laceration Fall Disposition: HOME / SELF CARE / HOMELESS Condition: GOOD Referrals: AMBERLY SYED MD (PCP) Patient Instructions: Staple Wound Closure, [id number] Additional Instructions: You were seen today in the emergency department for a stumble and fall in which you suffered a laceration to the back of your head. This laceration was repaired with two yohannes that will require removal in 7 [address] scan of your head and neck was performed today. There were no concerning findings that would require admission to the hospital or intervention by a specialist. Please call Dr. Imtiaz tomorrow to let him know of this fall and that you need to schedule an appointment to have your sutures removed. As we discussed please return to the emergency department immediately for a sudden onset of nausea and vomiting, headaches not relieved by [id number] Tylenol or Motrin, sudden onset of dizziness or passing out spells, or other concerns. Thank you for visiting our Emergency Department. It was a pleasure taking care of you today in the emergency department and we appreciate you trusting us with your care. If any additional problems come up don't hesitate to return to visit us. Please follow up with your primary care provider so they can plan additional care if needed and know about the problem that you had. If symptoms worsen come back to the Emergency Department. Any concerning symptoms that start such as chest pain, shortness of air, weakness or numbness on one side of the body, running high fevers or any other concerning symptoms return to the ER. Please wash the staple site daily with soap and water or shampoo and water, apply antibiotic ointment 2-3 times a day to aid in the healing process. EMERGENCY DEPARTMENT GENERAL DISCHARGE INSTRUCTIONS Thank you for coming to [facility] (ED) today and trusting us with you care. We trust that you had a positivie experience in our Emergency Department. If you wish to speak to the department management, you may call the director at [phone]. YOUR FOLLOW UP INSTRUCTIONS ARE FOLLOWS: 1. Do you have a private Doctor? If you do not have a private doctor, please ask for a resource list of physicians or clinics that may be able to assist you with follow up care. 2. The Emergency Physician has interpreted your x-rays. The X-Ray specialist will also review them. If there is a change in the findings, you will be notified in 48 hours when at all possible. 3. A lab test or culture has been done, your results will be reviewed and you will be notified if you need a change in treatment. ADDITIONAL INSTRUCTIONS AND INFORMATION: 1. Your care today has been supervised by a physician who is specially trained in emergency care. Many problems require more than one evaluation for a complete diagnosis and treatment. We recommend that you schedule your follow up appointment as recommended to ensure complete treatment of you illness or injury. If you are unable to obtain follow up care and continue to have a problem, or if your condition worsens, we recommend that you return to the ED. 2. We are not able to safely determine your condition over the phone nor are we able to give sound medical advice over the phone. For these safety reasons, if you call for medical advice we will ask you to come to the ED for further evaluation. 3. If you have any questions regarding these discharge instructions please call the ED at [phone]. SAFETY INFORMATION: In the interest of safety, wellness, and injury prevention; we encourage you to wear your sealbelt, if you smoke; quite smoking, and we encourage family to use a protective helmet for bicycling and other sporting events that present an increased risk for head injury. IF YOUR SYMPTOMS WORSEN OR NEW SYMPTOMS DEVELOP, OR YOU HAVE CONCERNS ABOUT YOUR CONDITION; OR IF YOUR CONDITION WORSENS WHILE YOU ARE WAITING FOR YOUR FOLLOW UP APPOINTMENT; EITHER CONTACT YOUR PRIMARY CARE DOCTOR, THE PHYSICIAN WHOSE NAME AND NUMBER YOU WERE GIVEN, OR RETURN TO THE ED IMMEDIATELY. Problem Qualifiers Primary Impression: Scalp contusion Encounter type: initial encounter Qualified Codes: S00.03XA - Contusion of scalp, initial encounter Additional Impressions: Scalp laceration Encounter type: initial encounter Qualified Codes: S01.01XA - Laceration without foreign body of scalp, initial encounter Fall Encounter type: initial encounter Qualified Codes: W19.XXXA - Unspecified fall, initial encounter АНДРЕЙ ROMERO APRN Dec 11, 2021 21:28 LALO DE LEÓN MD Dec 12, 2021 01:29
[2021-12-11] MEDS ORDERED: BACITRACIN ZINC TOPICAL OINT PACKET. TP ONE (21:30)
== END 2021-12-11 21:52 | disposition home or self-care (01) ==
LOC: ER 20:15
DX: S01.01XA Laceration without foreign body of scalp, initial encounter (principal); E78.00 Pure hypercholesterolemia, unspecified; I12.9 Hypertensive chronic kidney disease with stage 1 through stage 4 chronic kidney disease, or unspecified chronic kidney disease; E11.22 Type 2 diabetes mellitus with diabetic chronic kidney disease; N18.9 Chronic kidney disease, unspecified; W01.198A Fall on same level from slipping, tripping and stumbling with subsequent striking against other object, initial encounter; Y93.89 Activity, other specified; Y92.89 Other specified places as the place of occurrence of the external cause; Y99.8 Other external cause status
CPT/HCPCS: 12001; 70450; 72125; 99284